=== PATIENT | male | born 1995 | race Hispanic/Latino ===

== ENCOUNTER 2018-05-14 23:44 | Emergency (ER) | payer OTHER ==
[2018-05-15] MEDS ORDERED: LIDOCAINE 2% W/EPI 1:200,000 MPF 20 ML VIAL IM ONE (00:15)
--- NOTE | 2018-05-15 00:44 | EDPHYS ---
Physician Documentation [facility] Name: Willy Feliz Jr Age: 22 yrs Sex: Male : 1995 Arrival Date: 05/14/2018 Time: 23:49 Bed 6 Private MD: Uriah Matthews ED Physician Erwin Keen HPI: 05/15 00:41 This 22 yrs old Male presents to ER via Ambulatory with complaints of Facial gs Swelling, and pain. 00:41 The patient presents with pain, swelling. The problem is located in the upper left gs first molar. Onset: The symptoms/episode began/occurred 3 day(s) ago, and became worse and became persistent. Duration: The symptoms are continuous. Modifying factors: The symptoms are alleviated by nothing, the symptoms are aggravated by chewing. Associated signs and symptoms: Pertinent negatives: dysphagia, fever. Severity of symptoms: At their worst the symptoms were moderate, in the emergency department the symptoms are unchanged. The patient has not experienced similar symptoms in the past. Historical: - Allergies: 00:07 Dilaudid; lp1 - Home Meds: 00:07 None [Active]; lp1 - PMHx: 00:07 Anxiety; Asthma; lp1 - PSHx: 00:07 Carpel Tunnel; Appendectomy; lp1 - Immunization history:: Adult Immunizations up to date. - Social history:: Smoking status: Patient/guardian denies using tobacco. - Ebola Screening: : No symptoms or risks identified at this time. ROS: 00:41 All other systems are negative. gs Exam: 00:41 Eyes: Pupils equal round and reactive to light, extra-ocular motions intact. Lids and gs lashes normal. Conjunctiva and sclera are non-icteric and not injected. Cornea within normal limits. Periorbital areas with no swelling, redness, or edema. Neck: Trachea midline, no thyromegaly or masses palpated, and no cervical lymphadenopathy. Supple, full range of motion without nuchal rigidity, or vertebral point tenderness. No Meningismus. Chest/axilla: Normal chest wall appearance and motion. Nontender with no deformity. No lesions are appreciated. Cardiovascular: Regular rate and rhythm with a normal S1 and S2. No gallops, murmurs, or rubs. Normal PMI, no JVD. No pulse deficits. Respiratory: Lungs have equal breath sounds bilaterally, clear to auscultation and percussion. No rales, rhonchi or wheezes noted. No increased work of breathing, no retractions or nasal flaring. Abdomen/GI: Soft, non-tender, with normal bowel sounds. No distension or tympany. No guarding or rebound. No evidence of tenderness throughout. Back: No spinal tenderness. No costovertebral tenderness. Full range of motion. Skin: Warm, dry with normal turgor. Normal color with no rashes, no lesions, and no evidence of cellulitis. MS/ Extremity: Pulses equal, no cyanosis. Neurovascular intact. Full, normal range of motion. Neuro: Awake and alert, GCS 15, oriented to person, place, time, and situation. Cranial nerves II-XII grossly intact. Motor strength 5/5 in all extremities. Sensory grossly intact. Cerebellar exam normal. Normal gait. 00:41 Constitutional: The patient appears alert, awake. 00:41 Head/face: Noted is swelling, that is mild, of the left cheek. 00:41 ENT: Dental exam: abscess, that is mild, specifically in the upper left first molar (#14), pain, Voice: is normal. Vital Signs: 00:06 BP 174 / 122; Pulse 100; Resp 18; Temp 99.8(O); Pulse Ox 98% on R/A; Weight 103.87 kg; lp1 Height 5 ft. 6 in. (167.64 cm); Pain 9/10; 00:58 BP 158 / 105; Pulse 88; Resp 18; Pulse Ox 99% on R/A; lp1 00:06 Body Mass Index 36.96 (103.87 kg, 167.64 cm) lp1 Procedures: 00:41 I \T\ D: Incision and drainage was performed for an abscess of the left upper left first gs molar Anesthetized with ml's 2% Lidocaine with epinephrine. 2 ml's 2% Lidocaine with epinephrine. Incised with #11 blade. Drained small amount purulent fluid. the patient tolerated the procedure well. MDM: 00:01 Patient medically screened. gs 00:41 Differential diagnosis: dental caries, gingivitis, dental abscess. Data reviewed: vital gs signs, nurses notes. 00:45 Counseling: I had a detailed discussion with the patient and/or guardian regarding: the gs presence of at least one elevated blood pressure reading (>120/80) during this emergency department visit. Special discussion: I have referred the patient to see his PCP for further evaluation of high blood pressure. Administered Medications: 00:30 Drug: Lidocaine-Epinephrine -2 % (1:100,000) 10 ml Route: Infiltration; lp1 00:57 Drug: Motrin 800 mg Route: PO; lp1 01:38 Follow up: Response: No adverse reaction lp1 00:57 Drug: Augmentin 875 mg Route: PO; lp1 01:39 Follow up: Response: No adverse reaction lp1 Disposition: 05/15/18 00:43 Discharged to Home. Impression: Periapical abscess without sinus. - Condition is Stable. - Discharge Instructions: Dental Abscess, Managing Your High Blood Pressure. - Prescriptions for Tylenol- Codeine #4 300-60 mg Oral Tablet - take 1 tablet by ORAL route every 6 hours As needed; 10 tablet. Augmentin 875- 125 mg Oral Tablet - take 1 tablet by ORAL route every 12 hours for 10 days; 20 tablet. - Medication Reconciliation Form, Thank You Letter, Antibiotic Education, Prescription Opioid Use form. - Follow up: Private Physician; When: 2 - 3 days; Reason: Recheck today's complaints, Re-evaluation by your physician. Follow up: Emerson Gilbert DDS; When: 2 - 3 days; Reason: Re-evaluation by your physician. Signatures: Sandy Gallo RN RN 1 Erwin Keen MD MD Corrections: (The following items were deleted from the chart) 01:38 00:43 05/15/2018 00:43 Discharged to Home. Impression: Periapical abscess without lp1 sinus. Condition is Stable. Forms are Medication Reconciliation Form, Thank You Letter, Antibiotic Education, Prescription Opioid Use. Follow up: Private Physician; When: 2 - 3 days; Reason: Recheck today's complaints, Re-evaluation by your physician. Follow up: Emerson Gilbert; When: 2 - 3 days; Reason: Re-evaluation by your physician. gs
--- NOTE | 2018-05-15 00:44 | ER ---
Nurse's Notes [facility] Name: Willy Feliz Jr Age: 22 yrs Sex: Male : 1995 Arrival Date: 05/14/2018 Time: 23:49 Bed 6 Private MD: Uriah Matthews Diagnosis: Periapical abscess without sinus Presentation: 05/15 00:03 Presenting complaint: Patient states: Left sided facial pain that began 2 days ago, lp1 worse today and increased swelling; Denies fever. Transition of care: patient was not received from another setting of care. Onset of symptoms was May 15, 2018. Risk Assessment: Do you want to hurt yourself or someone else? Patient reports no desire to harm self or others. Initial Sepsis Screen: Does the patient meet any 2 criteria? No. Patient's initial sepsis screen is negative. Does the patient have a suspected source of infection? No. Patient's initial sepsis screen is negative. Care prior to arrival: None. 00:03 Method Of Arrival: Ambulatory lp1 00:03 Acuity: BRUCE 4 lp1 Historical: - Allergies: 00:07 Dilaudid; lp1 - Home Meds: 00:07 None [Active]; lp1 - PMHx: 00:07 Anxiety; Asthma; lp1 - PSHx: 00:07 Carpel Tunnel; Appendectomy; lp1 - Immunization history:: Adult Immunizations up to date. - Social history:: Smoking status: Patient/guardian denies using tobacco. - Ebola Screening: : No symptoms or risks identified at this time. Screenin:09 Abuse screen: Denies threats or abuse. Denies injuries from another. Nutritional lp1 screening: No deficits noted. Tuberculosis screening: No symptoms or risk factors identified. Fall Risk None identified. Assessment: 00:09 General: Appears uncomfortable, Behavior is cooperative, anxious. Pain: Complains of lp1 pain in left cheek Pain currently is 10 out of 10 on a pain scale. Quality of pain is described as sharp. Neuro: Level of Consciousness is awake, alert, obeys commands. Cardiovascular: Patient's skin is warm and dry. Respiratory: Respiratory effort is even, unlabored. GI: No signs and/or symptoms were reported involving the gastrointestinal system. : No signs and/or symptoms were reported regarding the genitourinary system. EENT: No signs and/or symptoms were reported regarding the EENT system. Derm: Wound noted Wound is Redness, swelling to left side of face. Musculoskeletal: Circulation, motion, and sensation intact. 01:00 Reassessment: Patient appears in no apparent distress at this time. Patient and/or lp1 family updated on plan of care and expected duration. Pain level reassessed. General: Behavior is anxious. Vital Signs: 00:06 BP 174 / 122; Pulse 100; Resp 18; Temp 99.8(O); Pulse Ox 98% on R/A; Weight 103.87 kg; lp1 Height 5 ft. 6 in. (167.64 cm); Pain 9/10; 00:58 BP 158 / 105; Pulse 88; Resp 18; Pulse Ox 99% on R/A; lp1 00:06 Body Mass Index 36.96 (103.87 kg, 167.64 cm) lp1 ED Course: 05/14 23:49 Patient arrived in ED. es 23:49 Uriah Matthews MD is Private Physician. 23:57 Erwin Keen MD is Attending Physician. 05/15 00:03 Sandy Gallo, MINO is Primary Nurse. lp1 00:05 Triage completed. lp1 00:06 Arm band placed on left wrist. lp1 00:09 Patient has correct armband on for positive identification. lp1 00:30 Assisted provider for draining of abscess in left side of mouth. lp1 00:43 Emerson Gilbert DDS is Referral Physician. gs 00:59 Patient did not have IV access during this emergency room visit. lp1 Administered Medications: 00:30 Drug: Lidocaine-Epinephrine -2 % (1:100,000) 10 ml Route: Infiltration; lp1 00:57 Drug: Motrin 800 mg Route: PO; lp1 01:38 Follow up: Response: No adverse reaction lp1 00:57 Drug: Augmentin 875 mg Route: PO; lp1 01:39 Follow up: Response: No adverse reaction lp1 Outcome: 00:43 Discharge ordered by . gs 01:38 Discharged to home ambulatory. lp1 01:38 Condition: good 01:38 Discharge instructions given to patient, Instructed on discharge instructions, follow up and referral plans. medication usage, Demonstrated understanding of instructions, follow-up care, medications, Prescriptions given X 2. 01:38 Patient left the ED. lp1 Signatures: Tisha Howe Laura RN RN lp1 Erwin Keen MD MD gs Corrections: (The following items were deleted from the chart) 01:01 00:09 General: Appears uncomfortable, Behavior is cooperative, appropriate for age, lp1 lp1
[2018-05-15] MEDS ORDERED: IBUPROFEN 400 MG TAB ONE (00:52)
[2018-05-15] MEDS ORDERED: AMOX/K CLAV 875 MG TAB ONE (00:52)
[2018-05-15 01:55] VITALS: TEMP 99.8
[2018-05-15 01:56] VITALS: BP 158/105; O2SAT 99
== END 2018-05-15 01:38 | disposition home or self-care (01) ==
LOC: ER 23:44
PROC: 0C95XZZ Drainage of Upper Gingiva, External Approach (ICD-10-PCS; principal; 2018-05-15)
DX: K04.7 Periapical abscess without sinus (principal); Z88.8 Allergy status to other drugs, medicaments and biological substances
CPT/HCPCS: 99283

== ENCOUNTER 2020-07-24 21:03 | Emergency (ER) | payer BC, OTHER ==
--- OUTSIDE RECORDS SUMMARY | 2020-07-24 21:05 | XMS REPORT | Continuity of Care Document ---
:1995 Author Organization [facility] t Address [address] [place] [address] [address] [place] [address] Care Team Providers Name Role Phone Lab, [facility] Fam Pob I Attending Clinician Unavailable Doctor Unassigned, Name Attending Clinician Unavailable Problems This patient has no known problems. Allergies, Adverse Reactions, Alerts This patient has no known allergies or adverse reactions. Medications This patient has no known medications. Procedures This patient has no known procedures. Encounters Start End Encounter Admission Attending Care Care Encounter Source Date/Time Date/Time Type Type Clinicians Facility Department ID 2020-07-14 2020-07-14 Laboratory Lab, [facility] [id number] 12:50:48 13:10:48 Only Fam Pob I Health [id number] [place] [id number] [facility] [id number] nal [address] 2020-07-14 2020-07-14 Letter Doctor FOZIA [id number] 00:00:00 00:00:00 (Out) UnassignedGUANAKO [id number] [facility] [phone] [id number] Results This patient has no known results.
--- OUTSIDE RECORDS SUMMARY | 2020-07-24 21:05 | XMS REPORT | Summary of Care ---
:1995 Author Organization [facility] Address [address] [place] [address] Care Team Providers Name Role Phone Uriah Matthews Rylie Primary Care Provider Reason for Visit Reason Comments Exposure Encounter Details Date Type Department Care Team Description 07/14/[address] [facility] Family Sheryl Sands FNP [address] [place] [address] Suspected 2019 [facility], [facility] Fam Pob I Coronavirus [address] [facility] Infection ([address] Dx) [place] [address] Allergies Not on Filedocumented as of this encounter (statuses as of 07/14/2020) Medications Not on filedocumented as of this encounter (statuses as of 07/14/2020) Active Problems Not on filedocumented as of this encounter (statuses as of 07/14/2020) Social History Tobacco Use Types Packs/Day Years Used Date Never Assessed Sex Assigned at Date Recorded Not on file documented as of this encounter Last Filed Vital Signs Not on filedocumented in this encounter Nursing Notes Smiley Amaro MA - 07/14/2020 1:00 PM JERONIMOTDonald Tray Jimenez is a 25 year old male here for COVID Screening with a Nasopharyngeal Swab All droplet and contact precautions taken with appropriate PPE worn while interacting with patient. ? Goggles ? N95 Mask ? Gloves ? Gown Patient swabbed , both Nostrils. Patient educated on plan of care for visit, swabbing technique, risks and benefits of test and length of time to receive results. Verbal consent obtained to perform test. CDC Fact Sheet for Patients nCoV Diagnostic Panel dated 02/06/2020 and Factsheet What to Do if Sick with COVID 19 01/17/20 provided. Patient swabbed per appropriate nasopharyngeal technique, and patient tolerated well. Patient was discharged from the testing clinic in stable condition. Smiley Amaro MA 07/14/2020 12:58 PM documented in this encounter Plan of Treatment Name Type Priority Associated Diagnoses Order S chedule COVID-19 (PCR MOLECULAR LAB Routine Suspected 2019 No levi Ordered: 07/14/2020 TESTING) Coronavirus Infection Health Maintenance Due Date Last Done Comments VARICELLA VACCINES (1 of 2 - 1994 2-dose childhood series) Depression Screening 2005 DTaP,Tdap,and Td Vaccines (1 - 2012 Tdap) INFLUENZA VACCINE (#1) 2020 PNEUMOCOCCAL 0-64 YEARS COMBINED Aged Out No longer eligible based on SERIES patient's age to complete this topic documented as of this encounter Results Not on filedocumented in this encounter Visit Diagnoses Diagnosis Suspected 2018 Novel Coronavirus Infecti on - Primary documented in this encounter Additional Health Concerns Infection Onset Date Last Indicated Resolved Time COVID-19 Rule Out 07/14/2020 07/14/2020 documented as of this encounter Insurance Payer Benefit Plan Subscriber ID Effective Dates Phone Address Type / Group [facility] [id number] 2019-[place]den [phone] [address] P[place] - OUT OF t 7 [id number] [place] [address] documented as of this encounter
--- OUTSIDE RECORDS SUMMARY | 2020-07-24 21:05 | XMS REPORT | Summary of Care ---
:1995 Author Organization [facility] Address [address] [place] [address] Care Team Providers Name Role Phone Byron Uriah Rylie Primary Care Provider Encounter Details Date Type Department Care Team Description 07/14/2020 Letter (Out) [facility] MyChart Message s Doctor Unassigned, No [address] [facility] [place] [address] [address] [facility] [phone] [place] [address] Allergies Not on Filedocumented as of this [...] Signs Not on filedocumented in this encounter Plan of Treatment Date Type Specialty Care Team Description 07/14/2020 Laboratory Only Family Medicine Gretchen Sands FNP [address] [address] Lab, Adc Fam Pob I Health Maintenance Due Date Last Done Comments VARICELLA VACCINES (1 of 2 - 1994 2-dose childhood series) Depression Screening 2005 DTaP,Tdap,and Td Vaccines (1 - 2012 Tdap) INFLUENZA VACCINE (#1) 2020 PNEUMOCOCCAL 0-64 YEARS COMBINED Aged Out No longer eligible based on SERIES patient's age to complete this topic documented as of this encounter Results Not on filedocumented in this encounter Insurance Payer Benefit Plan Subscriber ID Effective Dates Phone Address Type / Group [employer] [place] [id number] 2019-[place] [phone] [address] P[place] - OUT OF t 7 [id number] [place] [address] documented as of this encounter
[2020-07-24] MEDS ORDERED: KETOROLAC 30 MG/ML INJ ONE (22:04)
--- NOTE | 2020-07-24 22:28 | EDPHYS ---
Physician Documentation [facility] Name: Willy Feliz Jr Age: 25 yrs Sex: Male : 1995 Arrival Date: 07/24/2020 Time: 21:06 Bed 16 Private MD: Uriah Matthews ED Physician Jacob Waterman HPI: 07/24 21:56 This 25 yrs old Male presents to ER via Ambulatory with complaints of pm1 Headache, fatigue, Chest Tightness. 21:56 The patient complains of pain to the right eye and left eye. The patient describes the pm1 headache as aching. 21:56 Onset: The symptoms/episode began/occurred 3 day(s) ago. Associated signs and symptoms: pm1 Pertinent positives: sore throat, chills, body aches, headache. Patient with a co worker that tested positive for covid and he is concerned that his symptoms are covid related. Patient reports that it initially felt like an asthma exacerbation but then he started getting a sore throat, body ache, occasional shortness of breath with exertion. Historical: - Allergies: 21:21 Dilaudid; ss - PMHx: 21:21 Anxiety; Asthma; ss - PSHx: 21:21 Carpel Tunnel; Appendectomy; ss - Immunization history:: Adult Immunizations up to date. - Social history:: Smoking status: Patient denies any tobacco usage or history of. ROS: 21:56 Neck: Negative for injury, pain, and swelling, Cardiovascular: Negative for chest pain, pm1 palpitations, and edema. 21:56 Abdomen/GI: Negative for abdominal pain, nausea, vomiting, diarrhea, and constipation, Back: Negative for injury and pain, MS/Extremity: Negative for injury and deformity, Skin: Negative for injury, rash, and discoloration. 21:56 Constitutional: Positive for body aches, chills, poor PO intake. 21:56 ENT: Positive for sore throat, Negative for ear pain. 21:56 Respiratory: Positive for shortness of breath, Negative for cough. 21:56 Neuro: Positive for headache. Exam: 21:56 Constitutional: This is a well developed, well nourished patient who is awake, alert, pm1 and in no acute distress. 21:56 Head/Face: Normocephalic, atraumatic. ENT: Nares patent. No nasal discharge, no septal abnormalities noted. Tympanic membranes are normal and external auditory canals are clear. Oropharynx with no redness, swelling, or masses, exudates, or evidence of obstruction, uvula midline. Mucous membranes moist. 21:56 Skin: Warm, dry with normal turgor. Normal color with no rashes, no lesions, and no evidence of cellulitis. MS/ Extremity: Pulses equal, no cyanosis. Neurovascular intact. Full, normal range of motion. 21:56 Head/face: Sinus tenderness, is not appreciated. 21:56 Cardiovascular: Exam negative for acute changes, Rate: normal, Rhythm: regular, Pulses: no pulse deficits are appreciated. 21:56 Respiratory: Exam negative for acute changes, respiratory distress, shortness of breath. 21:56 Abdomen/GI: Inspection: abdomen appears normal, Palpation: abdomen is soft and non-tender, in all quadrants. 21:56 Neuro: Exam negative for acute changes, Orientation: is normal, Mentation: is normal, Motor: is normal, moves all fours, Sensation: is normal, no obvious gross deficits. Vital Signs: 21:17 BP 141 / 98; Pulse 111; Resp 16; Temp 100.9(TE); Pulse Ox 98% on R/A; Weight 108.86 kg; ss Height 5 ft. 6 in. (167.64 cm); Pain 8/10; 22:38 Temp 99.2; ea 22:42 BP 138 / 93; Pulse 95; Resp 18; Pulse Ox 98% on R/A; ea 21:17 Body Mass Index 38.74 (108.86 kg, 167.64 cm) ss MDM: 21:18 Patient medically screened. pm1 22:27 Data reviewed: vital signs. Data interpreted: Pulse oximetry: on room air is 98 %. pm1 Interpretation: normal. Counseling: I had a detailed discussion with the patient and/or guardian regarding: the historical points, exam findings, and any diagnostic results supporting the discharge/admit diagnosis, lab results, radiology results, the need for outpatient follow up, to return to the emergency department if symptoms worsen or persist or if there are any questions or concerns that arise at home. 07/24 21:20 Order name: COVID-19 pm1 07/24 21:20 Order name: Flu; Complete Time: 22:26 pm1 07/24 21:20 Order name: CXR XRAY pm1 07/24 21:20 Order name: Strep; Complete Time: 22:26 pm1 07/24 22:18 Order name: Throat Culture [facility] 07/24 21:20 Order name: Labs collected and sent; Complete Time: 21:45 pm1 Administered Medications: 22:03 Drug: TORadol 60 mg Route: IM; Site: left gluteus; ea 22:38 Follow up: Temp 99.2; Response: No adverse reaction ea 22:38 Drug: predniSONE 60 mg Route: PO; ea 22:39 Follow up: Response: Medication administered at discharge. ea Disposition: 23:25 Co-signature as Attending Physician, Jacob Waterman MD. [email or web address] Disposition: 07/24/20 22:27 Discharged to Home. Impression: Acute upper respiratory infection, unspecified. - Condition is Stable. - Discharge Instructions: Upper Respiratory Infection, Adult, COVID-19. - Prescriptions for Prednisone 20 mg Oral Tablet - take 2 tablets by ORAL route once daily for 7 days; 14 tablet. Albuterol Sulfate 90 mcg/actuation - inhale 1-2 puff by INHALATION route every 4-6 hours; 1 Inhaler. - Medication Reconciliation Form, Thank You Letter, Antibiotic Education, Prescription Opioid Use, Work release form form. - Follow up: Emergency Department; When: As needed; Reason: Worsening of condition. Follow up: Private Physician; When: 2 - 3 days; Reason: Recheck today's complaints, Continuance of care, Re-evaluation by your physician. - Problem is new. - Symptoms have improved. Signatures: Dispatcher [employer] [facility] Jacob Waterman MD MD pkl Smirch, Shelby, RN RN ss Marinas, Patrick, DRUM PLATER DRUM PLATER pm1 Maribell Diaz RN RN ea Corrections: (The following items were deleted from the chart) 22:51 22:27 07/24/2020 22:27 Discharged to Home. Impression: Acute upper respiratory ea infection, unspecified. Condition is Stable. Forms are Medication Reconciliation Form, Thank You Letter, Antibiotic Education, Prescription Opioid Use. Follow up: Emergency Department; When: As needed; Reason: Worsening of condition. Follow up: Private Physician; When: 2 - 3 days; Reason: Recheck today's complaints, Continuance of care, Re-evaluation by your physician. Problem is new. Symptoms have improved. pm1
--- NOTE | 2020-07-24 22:28 | ER ---
Nurse's Notes [facility] Name: Willy Feliz Jr Age: 25 yrs Sex: Male : 1995 Arrival Date: 07/24/2020 Time: 21:06 Bed 16 Private MD: Uriah Matthews Diagnosis: Acute upper respiratory infection, unspecified Presentation: 07/24 21:17 Chief complaint: Patient states: sore throat, headache, decreased appetite, SOB on ss exertion at times and feeling hot off and on for 2-3 days. Coronavirus screen: Client denies travel out of the [place] in the last 14 days. Ebola Screen: Patient denies exposure to infectious person. Patient denies travel to an Ebola-affected area in the 21 days before illness onset. Initial Sepsis Screen: Does the patient meet any 2 criteria? No. Patient's initial sepsis screen is negative. Does the patient have a suspected source of infection? No. Patient's initial sepsis screen is negative. Risk Assessment: Do you want to hurt yourself or someone else? Patient reports no desire to harm self or others. Onset of symptoms was July 21, 2020. 21:17 Method Of Arrival: Ambulatory ss 21:17 Acuity: BRUCE 3 ss Triage Assessment: 21:50 Headache History: Denies prior headaches. General: Appears in no apparent distress. ll2 Behavior is appropriate for age. Pain: Denies pain. Historical: - Allergies: 21:21 Dilaudid; ss - PMHx: 21:21 Anxiety; Asthma; ss - PSHx: 21:21 Carpel Tunnel; Appendectomy; ss - Immunization history:: Adult Immunizations up to date. - Social history:: Smoking status: Patient denies any tobacco usage or history of. Screenin:49 Abuse screen: Denies threats or abuse. Nutritional screening: No deficits noted. ll2 Tuberculosis screening: No symptoms or risk factors identified. Fall Risk None identified. Assessment: 21:30 General: Appears uncomfortable, Behavior is appropriate for age. Pain: Denies pain. ll2 Neuro: Level of Consciousness is awake, alert, obeys commands, Oriented to person, place, time, situation. Cardiovascular: Patient's skin is warm and dry. Respiratory: Airway is patent Respiratory effort is even, unlabored, Respiratory pattern is regular, symmetrical. Derm: Skin is pink, warm \T\ dry. 22:50 Reassessment: Patient and/or family updated on plan of care and expected duration. Pain ea level reassessed. Patient is alert, oriented x 3, equal unlabored respirations, skin warm/dry/pink. Discharge instruction given to patient, verbalized the understanding of instruction. Pt left ED ambulatory tolerating well. Vital Signs: 21:17 BP 141 / 98; Pulse 111; Resp 16; Temp 100.9(TE); Pulse Ox 98% on R/A; Weight 108.86 kg; ss Height 5 ft. 6 in. (167.64 cm); Pain 8/10; 22:38 Temp 99.2; ea 22:42 BP 138 / 93; Pulse 95; Resp 18; Pulse Ox 98% on R/A; ea 21:17 Body Mass Index 38.74 (108.86 kg, 167.64 cm) ED Course: 21:06 Patient arrived in ED. am2 21:07 Uriah Matthews MD is Private Physician. am2 21:16 Jourdan Noe NP is PHCP. pm1 21:16 Jacob Waterman MD is Attending Physician. pm1 21:21 Triage completed. ss 21:21 Arm band placed on right wrist. ss 21:26 Maribell Diaz, MINO is Primary Nurse. ea 21:30 Patient has correct armband on for positive identification. Bed in low position. Call ll2 light in reach. Side rails up X 1. Pulse ox on. NIBP on. 21:53 CXR XRAY In Process Unspecified. EDMS 22:43 No provider procedures requiring assistance completed. Patient did not have IV access ea during this emergency room visit. Administered Medications: 22:03 Drug: TORadol 60 mg Route: IM; Site: left gluteus; ea 22:38 Follow up: Temp 99.2; Response: No adverse reaction ea 22:38 Drug: predniSONE 60 mg Route: PO; ea 22:39 Follow up: Response: Medication administered at discharge. ea Outcome: 22:27 Discharge ordered by . pm1 22:50 Discharged to home ambulatory. ea 22:50 Condition: stable 22:50 Discharge instructions given to patient, Instructed on discharge instructions, follow up and referral plans. medication usage, Demonstrated understanding of instructions, follow-up care, medications, Prescriptions given X 2. 22:51 Patient left the ED. dexter Addendum: 07/28/2020 08:38 Addendum: COVID-19 Result: Positive result giiven to ED physician to notify pt. tad larios Physician: Paty DAVID-C Physician was able to contact pt and pt was notified of positive COVID-19 swab result. Physician answered pt questions. Signatures: Dispatcher [employer] EDIN Mary Avalos, MINO RN Jourdan Guadalupe NP BONER MEAT pm1 Astrid Madrigal am2 Maribell Diaz RN RN Julia Cortes Lacie RN RN ll2
[2020-07-24] MEDS ORDERED: predniSONE 20 MG TAB ONE (22:46)
--- NOTE | 2020-07-25 17:02 | RAD REPORT ---
EXAM DESCRIPTION: RAD - Chest Single View - 07/24/2020 9:53 pm CLINICAL HISTORY: FEVER COMPARISON: February 2017 TECHNIQUE: AP portable chest image was obtained 07/24/2020 9:53 pm . FINDINGS: Lung volumes are low. Airspace opacification is present in the volume reduced right upper lobe. The right lung base and left lung field are clear. No failure or volume overload. Trachea is mi dline. Heart and vasculature are normal. No measurable pleural effusion and no pneumothorax. No acute bony abnormality seen. No acute aortic findings suspected. IMPRESSION: Right upper lobe pneumonia
[2020-07-27 16:07] VITALS: O2SAT 98
[2020-07-27 16:08] VITALS: TEMP 99.2
[2020-07-27 16:09] VITALS: BP 138/93
== END 2020-07-24 22:51 | disposition home or self-care (01) ==
LOC: ER 21:03
DX: U07.1 COVID-19 (principal); J06.9 Acute upper respiratory infection, unspecified; Z88.8 Allergy status to other drugs, medicaments and biological substances
CPT/HCPCS: 87070; 87081; 87804 ×2; 71045; 96372; 99284; U0002; J7512

== ENCOUNTER 2020-07-28 08:16 | Emergency (ER) | payer BC, OTHER ==
--- OUTSIDE RECORDS SUMMARY | 2020-07-28 08:27 | XMS REPORT | Continuity of Care Document ---
:1995 Author Organization [facility] t Address [address] [place] [address] Dr. Sandhu[address] [place] [address] Care Team Providers Name Role Phone Lab, [facility] Fam Pob I Attending Clinician Unavailable Doctor [...] Facility Department ID 2020-07-14 2020-07-14 Laboratory Lab, [facility] [id number] 12:50:48 13:10:48 Only Fam Pob I Health [id number] [place] [id number] Professio [phone] nal [address] 2020-07-14 2020-07-14 Letter Doctor MARCELO [id number] 00:00:00 00:00:00 (Out) UnassignedGUANAKO [id number] [place] [facility] [id number] [phone] [id number] Results This patient has no known results.
--- NOTE | 2020-07-28 09:11 | EDPHYS ---
Physician Documentation [facility] Name: Willy Feliz Jr Age: 25 yrs Sex: Male : 1995 Arrival Date: 07/28/2020 Time: 08:20 Bed 13 Private MD: ED Physician Eladio Camacho HPI: 07/28 09:05 This 25 yrs old Male presents to ER via Ambulatory with complaints of Cold kb Symptoms. 09:05 The patient or guardian reports cough, that is intermittent, described as moderate, kb with no sputum, difficulty breathing, flu symptoms, low-grade fever, myalgias. Onset: The symptoms/episode began/occurred 7 day(s) ago. Severity of symptoms: At their worst the symptoms were moderate, in the emergency department the symptoms are unchanged. Modifying factors: The symptoms are alleviated by nothing, the symptoms are aggravated by nothing. Associated signs and symptoms: Pertinent positives: fever, Pertinent negatives: chest pain, diarrhea, ear ache, nausea, rhinorrhea, sore throat, vomiting. The patient has not experienced similar symptoms in the past. The patient has not recently seen a physician. Pt reports he was seen on 07/24/20 for same symptoms. States the symptoms are not getting worse, but they aren't going away. Was given an albuterol inhaler during last visit and that helps the shortness of breath. Historical: - Allergies: 08:34 Dilaudid; ss - PMHx: 08:34 Anxiety; Asthma; ss - PSHx: 08:34 Carpel Tunnel; Appendectomy; ss - Immunization history:: Adult Immunizations up to date. - Social history:: Smoking status: Patient denies any tobacco usage or history of. ROS: 09:08 ENT: Negative for injury, pain, and discharge, Neck: Negative for injury, pain, and kb swelling, Cardiovascular: Negative for chest pain, palpitations, and edema, Abdomen/GI: Negative for abdominal pain, nausea, vomiting, diarrhea, and constipation, Back: Negative for injury and pain, MS/Extremity: Negative for injury and deformity, Skin: Negative for injury, rash, and discoloration, Neuro: Negative for headache, weakness, numbness, tingling, and seizure. 09:08 Constitutional: Positive for body aches, chills, fatigue, fever, malaise. 09:08 Respiratory: Positive for cough, dyspnea on exertion, shortness of breath. Exam: 09:08 Constitutional: This is a well developed, well nourished patient who is awake, alert, kb and in no acute distress. Head/Face: Normocephalic, atraumatic. ENT: Nares patent. No nasal discharge, no septal abnormalities noted. Tympanic membranes are normal and external auditory canals are clear. Oropharynx with no redness, swelling, or masses, exudates, or evidence of obstruction, uvula midline. Mucous membranes moist. Neck: Trachea midline, no thyromegaly or masses palpated, and no cervical lymphadenopathy. Supple, full range of motion without nuchal rigidity, or vertebral point tenderness. No Meningismus. Chest/axilla: Normal chest wall appearance and motion. Nontender with no deformity. No lesions are appreciated. Cardiovascular: Regular rate and rhythm with a normal S1 and S2. No gallops, murmurs, or rubs. Normal PMI, no JVD. No pulse deficits. Respiratory: Lungs have equal breath sounds bilaterally, clear to auscultation and percussion. No rales, rhonchi or wheezes noted. No increased work of breathing, no retractions or nasal flaring. Abdomen/GI: Soft, non-tender, with normal bowel sounds. No distension or tympany. No guarding or rebound. No evidence of tenderness throughout. Skin: Warm, dry with normal turgor. Normal color with no rashes, no lesions, and no evidence of cellulitis. MS/ Extremity: Pulses equal, no cyanosis. Neurovascular intact. Full, normal range of motion. Neuro: Awake and alert, GCS 15, oriented to person, place, time, and situation. Cranial nerves II-XII grossly intact. Motor strength 5/5 in all extremities. Sensory grossly intact. Cerebellar exam normal. Normal gait. Vital Signs: 08:29 BP 123 / 83; Pulse 94; Resp 17; Temp 97.0(TE); Pulse Ox 97% on R/A; Weight 108.86 kg; ss Height 5 ft. 6 in. (167.64 cm); Pain 9/10; 09:48 BP 120 / 84; Pulse 93; Resp 16; Temp 97.5; Pulse Ox 96% ; bp 08:29 Body Mass Index 38.74 (108.86 kg, 167.64 cm) ss MDM: 08:25 Patient medically screened. kb 09:09 Data reviewed: vital signs, nurses notes. Data interpreted: Pulse oximetry: on room air kb is 97 %. Interpretation: normal. Counseling: I had a detailed discussion with the patient and/or guardian regarding: the historical points, exam findings, and any diagnostic results supporting the discharge/admit diagnosis, lab results, radiology results, the need for outpatient follow up, a family practitioner, to return to the emergency department if symptoms worsen or persist or if there are any questions or concerns that arise at home. 07/28 08:30 Order name: Chest Single View XRAY; Complete Time: 09:13 kb Administered Medications: 09:20 Drug: Zithromax 500 mg Route: PO; bp 09:49 Follow up: Response: No adverse reaction bp Disposition: 07/28/20 09:10 Discharged to Home. Impression: Coronavirus infection, unspecified - COVID-19. - Condition is Stable. - Discharge Instructions: COVID-19. - Prescriptions for Zithromax 500 mg Oral Tablet - take 1 tablet by ORAL route once daily for 5 days; 5 tablet. - Medication Reconciliation Form, Thank You Letter, Antibiotic Education, Prescription Opioid Use form. - Follow up: Emergency Department; When: As needed; Reason: Worsening of condition. Follow up: Private Physician; When: 2 - 3 days; Reason: Recheck today's complaints, Continuance of care, Re-evaluation by your physician. Addendum: 07/29/2020 11:04 Co-signature as Attending Physician, Eladio Camacho MD I agree with the assessment and c cisse plan of care. Signatures: Dispatcher [employer] [facility] Paty Newton, JOANN-C FARM BOSS-Eladio Nascimento MD MD cha Smirch, Shelby, MINO RN Uriah Razo, MINO RN bp Corrections: (The following items were deleted from the chart) 07/28 09:50 09:10 07/28/2020 09:10 Discharged to Home. Impression: Coronavirus infection, bp unspecified - COVID-19. Condition is Stable. Forms are Medication Reconciliation Form, Thank You Letter, Antibiotic Education, Prescription Opioid Use. Follow up: Emergency Department; When: As needed; Reason: Worsening of condition. Follow up: Private Physician; When: 2 - 3 days; Reason: Recheck today's complaints, Continuance of care, Re-evaluation by your physician. kb
--- NOTE | 2020-07-28 09:11 | ER ---
Nurse's Notes [facility] Name: Willy Feliz Jr Age: 25 yrs Sex: Male : 1995 Arrival Date: 07/28/2020 Time: 08:20 Bed 13 Private MD: Diagnosis: Coronavirus infection, [id number] Presentation: 07/28 08:29 Chief complaint: Patient states: "I was here Friday for chills, fever, SOB and headache ss and it's just not getting any better.". Coronavirus screen: Client denies travel out of the [place] in the last 14 days. Client reports previous positive COVID test result. Ebola Screen: Patient denies exposure to infectious person. Patient denies travel to an Ebola-affected area in the 21 days before illness onset. Initial Sepsis Screen: Does the patient meet any 2 criteria? No. Patient's initial sepsis screen is negative. Does the patient have a suspected source of infection? No. Patient's initial sepsis screen is negative. Risk Assessment: Do you want to hurt yourself or someone else? Patient reports no desire to harm self or others. Onset of symptoms was July 24, 2020. 08:29 Method Of Arrival: Ambulatory ss 08:29 Acuity: BRUCE 4 ss Triage Assessment: 08:30 General: Appears in no apparent distress. uncomfortable, ill, Behavior is cooperative, bp appropriate for age, anxious. Pain: Complains of pain in head. EENT: Reports nasal congestion. Neuro: Reports headache. Cardiovascular: No deficits noted. Respiratory: Reports shortness of breath. GI: No signs and/or symptoms were reported involving the gastrointestinal system. : No signs and/or symptoms were reported regarding the genitourinary system. Derm: No deficits noted. Musculoskeletal: No deficits noted. Historical: - Allergies: 08:34 Dilaudid; ss - PMHx: 08:34 Anxiety; Asthma; ss - PSHx: 08:34 Carpel Tunnel; Appendectomy; ss - Immunization history:: Adult Immunizations up to date. - Social history:: Smoking status: Patient denies any tobacco usage or history of. Screenin:30 Abuse screen: Denies threats or abuse. Denies injuries from another. Nutritional bp screening: No deficits noted. Tuberculosis screening: No symptoms or risk factors identified. Fall Risk None identified. Assessment: 08:29 Reassessment: COVID results in, +, tested on Friday. ss 09:48 Reassessment: PT D/C HOME AMBULATORY, DX WITH COVID +. bp Vital Signs: 08:29 BP 123 / 83; Pulse 94; Resp 17; Temp 97.0(TE); Pulse Ox 97% on R/A; Weight 108.86 kg; ss Height 5 ft. 6 in. (167.64 cm); Pain 9/10; 09:48 BP 120 / 84; Pulse 93; Resp 16; Temp 97.5; Pulse Ox 96% ; bp 08:29 Body Mass Index 38.74 (108.86 kg, 167.64 cm) ED Course: 08:20 Patient arrived in ED. as 08:22 Uriah Tidwell, RN is Primary Nurse. bp 08:25 Paty Newton FNP-C is PHCP. kb 08:25 Eladio Camacho MD is Attending Physician. kb 08:30 Patient has correct armband on for positive identification. Bed in low position. Call bp light in reach. Side rails up X2. 08:33 Triage completed. ss 08:34 Arm band placed on left wrist. ss 08:48 Chest Single View XRAY In Process Unspecified. EDMS 09:48 No provider procedures requiring assistance completed. Patient did not have IV access bp during this emergency room visit. Administered Medications: 09:20 Drug: Zithromax 500 mg Route: PO; bp 09:49 Follow up: Response: No adverse reaction bp Outcome: 09:10 Discharge ordered by . kb 09:48 Discharged to home ambulatory. bp 09:48 Condition: stable 09:48 Discharge instructions given to patient, Instructed on discharge instructions, follow up and referral plans. medication usage, Demonstrated understanding of instructions, follow-up care, medications, Prescriptions given X 1. 09:50 Patient left the ED. bp Signatures: Dispatcher [employer] EDMS Paty Newton FNP-C FNP-Ckb Martinez, Amelia as Smirch, Shelby, RN RN Uriah Tidwell, RN RN bp
--- NOTE | 2020-07-28 09:11 | RAD REPORT ---
EXAM DESCRIPTION: RAD - Chest Single View - 07/28/2020 8:48 am CLINICAL HISTORY: Dyspnea;Cough Chest pain. COMPARISON: Chest Single View dated 07/24/2020; Chest Single View dated 03/08/2017 FINDINGS: Portable technique limits examination quality. Interstitial opacities are present in the right lung and left lung base suspicious for a viral bronch itis. The heart is normal in size. No displaced fractures.
[2020-07-28] MEDS ORDERED: AZITHROMYCIN 250 MG TAB ONE (09:22)
[2020-07-29 17:40] VITALS: BP 120/84; TEMP 97.5; O2SAT 96
== END 2020-07-28 09:50 | disposition home or self-care (01) ==
LOC: ER 08:16
DX: U07.1 COVID-19 (principal); Z88.8 Allergy status to other drugs, medicaments and biological substances
CPT/HCPCS: 71045; 99283

== ENCOUNTER 2022-08-25 18:33 | Emergency (ER) | payer BC ==
--- OUTSIDE RECORDS SUMMARY | 2022-08-25 18:36 | XMS REPORT | Continuity of Care Document ---
:1995 Author Organization [facility] t Address [address] [place] [address] Care Team Providers Name Role Phone Bhanu HOOD, Amina Hart Primary Care Physician [phone] Amina Drummond MD Attending Clinician [phone] Lab, [facility] Fam Pob I Attending Clinician Unavailable Gretchen Porter Attending Clinician Doctor Unassigned, [place] Attending Clinician Unavailable GRETCHEN GONZALES Attending Clinician Unavailable Payers Payer Name Policy Type Policy Number Effective Date Expiration Date S ource Problems Condition Condition Condition Status Onset Resolution Last Treating Co mments Source Name Details Category Date Date Treatment Clinician Date No known No known Disease Kelse y active active ybmikel problems problems Allergies, Adverse Reactions, Alerts Allergy Allergy Status Severity Reaction(s) Onset Inactive Treating Comm ents Source Name Type Date Date Clinician NO KNOWN Drug Active [facility] Social History Social Habit Start Date Stop Date Quantity Comments Source Exposure to Not sure Re zavaleta SARS-CoV-2 (event) Tobacco use and 2021-11-13 2021-11-13 Smokeless tobacco Wyatt Munoz exposure 00:00:00 00:00:00 non-user Sex Ass[birth year] At [birth year] Re guerra 00:00:00 00:00:00 Smoking Status Start Date Stop Date Source Unknown if [facility] Never smoked tobacco Re morin Medications Ordered Filled Start Stop Current Ordering Indication Dosage Frequency Signature Comments Components Source Medication Medication Date Date Medication? Clinician (SIG) Name Name No known 2020-11 No No known Kelse y medications 2- medication Se ybold 17:07: s 52 Immunizations Ordered Immunization Filled Immunization Date Status Commen ts Source Name Name Tdap- (Boostrix, 2018-02-09 Completed Re dash Adacel) 00:00:00 Vital Signs Vital Name Observation Time Observation Value Comments Source Heart rate 2021-11-13 22:13:00 87 /min Re espinobosamir Body temperature 2021-11-13 22:13:00 36.56 Amarilis Gladys ey Seybmikel Respiratory rate 2021-11-13 22:13:00 14 /min Gladys ey Seybmikel Body height 2021-11-13 22:13:00 167.6 cm Re espinobosamir Body weight 2021-11-13 22:13:00 109.77 kg Re espinobosamir BMI 2021-11-13 22:13:00 39.06 kg/m2 Re espinobosamir Systolic blood pressure 2021-11-13 22:13:00 138 mm[Hg] Re ybmikel Diastolic blood 2021-11-13 22:13:00 86 mm[Hg] Kelse y Seybold pressure Procedures Procedure Date / Time Performed Performing Clinician [facility] e PATIENT QUESTIONNAIRE 2020-08-08 05:01:00 Doctor Unassigned, No [facility] Encounters Start End Encounter Admission Attending Care Care Encounter Source Date/Time Date/Time Type Type Clinicians Facility Department ID 2021-11-13 2021-11-13 Office Yohannes Drummond [id number] Re 16:30:00 17:00:00 Visit Amina Newton [id number] Se charlie Somogyi [id number] 2020-08-22 2020-08-22 Laboratory Lab, [facility] [id number] 08:20:42 08:40:42 Only Fam Pob I Health [id number] [place] [id number] Professio [phone] nal 0[address] One 2020-08-22 2020-08-22 Laboratory Lab, [facility] Fam Pob I [facility] 1.2. [id number] Univers 08:20:42 08:40:42 Only Anene, Gretchen Health [id number] ity of [place] [id number] [place] as Professio [phone] [address] Office [address] One 2020-08-22 2020-08-22 Outpatient R [facility] [id number] Univers 08:20:00 08:20:00 ity of [facility] 2020-08-22 2020-08-22 Outpatient R [facility] [id number] Univers 08:15:00 08:15:00 [id number] ity [facility] 2020-08-08 2020-08-08 Orders Doctor MARCELO [id number] [id number] 00:00:00 00:00:00 Only Unassigned, GUANAKO [id number] [place] [facility] [id number] [facility] 2020-08-08 2020-08-08 Orders Doctor MARCELO 1.2.840.114 [id number] Univers 00:00:00 00:00:00 Only Unassigned, GUANAKO [id number] ity of [place] [facility] [id number] [place] as [phone] [address] 2020-08-07 2020-08-07 Laboratory Lab, [facility] 1.2.840.114 [id number] 12:53:28 13:13:28 Only Fam Pob I Health [id number] [place] [id number] Professio [phone] [place] [address] Office [address] [facility] 2020-08-07 2020-08-07 Laboratory Lab, [facility] Fam Pob I [facility] 1.2. 840.114 [id number] Univers 12:53:28 13:13:28 Only Anene, Gretchen Health [id number] ity of [place] [id number] [place] as Professio [phone] [address] Office [address] One 2020-08-07 2020-08-07 Outpatient R [facility] [id number] Univers 13:00:00 13:00:00 [id number] ity [facility] 2020-08-07 2020-08-07 Outpatient R [facility] [id number] Univers 13:00:00 13:00:00 ity [facility] 2020-07-14 2020-07-14 Laboratory Lab, [facility] 1.2.840.114 [id number] 12:50:48 13:10:48 Only Fam Pob I Health [id number] [place] [id number] Professio [phone] nal [facility] Office Building [facility] 2020-07-14 2020-07-14 Laboratory Lab, [facility] Fam Pob I [facility] 1.2. 840.114 [id number] [facility] 12:50:48 13:10:48 Only Gretchen [facility] [id number] ity of [place] [id number] [place] as Professio [phone] [place] [facility] [address] [facility] 2020-07-14 2020-07-14 [facility] [id number] Univers 13:00:00 13:00:00 GRETCHEN ity [facility] 2020-07-14 2020-07-14 Letter Doctor FOZIA 1.2.840.114 [id number] 00:00:00 00:00:00 (Out) Unassigned, GUANAKO [id number] [place] [facility] [phone] [facility] 2020-07-14 2020-07-14 Letter Doctor FOZIA [id number] Univers 00:00:00 00:00:00 (Out) Unassigned, GUANAKO [id number] ity of [place] [facility] [id number] [place] as [phone] [address] Results This patient has no known results.
[2022-08-25 19:23] LABS: Absolute Lymphocytes (CBC) 2.1 K/uL (0.7-4.9); Hematocrit 46.6 % (39.6-49.0); Lymphocytes % 23.3 % (15.3-44.8); MCV 84.8 fL (80-100); MPV 7.8 fL (7.6-11.3); RBC Red Blood Cell Count 5.49 M/uL (4.33-5.43)
[2022-08-25 19:46] LABS: Potassium 3.8 mmol/L (3.5-5.1); Troponin High Sensitivity 4.3 pg/mL (<58.9)
[2022-08-25] MEDS ORDERED: DIAZEPAM 5 MG TABLET ONE (20:20)
--- NOTE | 2022-08-25 20:28 | RAD REPORT ---
EXAM DESCRIPTION: RAD - Chest Single View - 08/25/2022 8:20 pm CLINICAL HISTORY: CHEST PAIN Chest pain. COMPARISON: Chest Single View dated 07/28/2020; Chest Single View dated 07/24/2020; Chest Single View d ated 03/08/2017 FINDINGS: Portable technique limits examination quality. The lungs are grossly clear. The heart is normal in size. No displaced fractures. IMPRESSION: No acute intrathoracic process suspected.
[2022-08-25 20:57] LABS: SARS-CoV-2 Antigen Rapid Res Negative (Negative)
--- NOTE | 2022-08-25 21:09 | RAD REPORT ---
EXAM DESCRIPTION: CT - Chest For Pe Angio - 08/25/2022 8:45 pm CLINICAL HISTORY: Chest pain. Chest pain, htn, tachycardia, low grade temp COMPARISON: Chest Single View dated 07/24/2020 TECHNIQUE: CT angiogram of the pulmonary arteries was performed with MIP. All CT scans are performed using dose optimization technique as appropriate and may include automated exposure control or mA/KV adjustment according to patient size. FINDINGS: No evidence of pulmonary thromboembolism. No acute aortic finding demonstrated. The lungs are clear. No significant pericardial or pleural fluid. No concerning bony finding. Fatty liver. IMPRESSION: No evidence of pulmonary thromboembolism. No acute lung findings.
--- NOTE | 2022-08-25 23:56 | EDPHYS ---
Physician Documentation [facility] Name: Willy Feliz Jr Age: 27 yrs Sex: Male : 1995 Arrival Date: 08/25/2022 Time: 18:34 Bed 18 Private MD: ED Physician Luis Valdez HPI: 08/26 02:25 This 27 yrs old Male presents to ER via Ambulatory with complaints of snw Dizziness, Chest Pain, Foot Pain, Headache. 02:25 Onset: The symptoms/episode began/occurred suddenly, today. Associated signs and snw symptoms: Pertinent positives: chest pain, mild SOB, dizziness, and headache. Modifying factors: The patient symptoms are alleviated by nothing, the patient symptoms are aggravated by nothing. It is unknown whether or not the patient has had similar symptoms in the past. It is unknown whether or not the patient has recently seen a physician. Historical: - Allergies: 08/25 18:56 Dilaudid (Rash); vg1 - PMHx: 18:56 Anxiety; Asthma; vg1 - PSHx: 18:56 Appendectomy; vg1 - Immunization history:: Client reports receiving the 2nd dose of the Covid vaccine. - Social history:: Smoking status: Patient denies any tobacco usage or history of. ROS: 08/26 02:24 Constitutional: Negative for fever, chills, and weight loss, Eyes: Negative for injury, snw pain, redness, and discharge, ENT: Negative for injury, pain, and discharge, Neck: Negative for injury, pain, and swelling, Respiratory: Negative for shortness of breath, cough, wheezing, and pleuritic chest pain, Abdomen/GI: Negative for abdominal pain, nausea, vomiting, diarrhea, and constipation, Back: Negative for injury and pain, : Negative for injury, bleeding, discharge, and swelling, MS/Extremity: Negative for injury and deformity, Skin: Negative for injury, rash, and discoloration, Neuro: Negative for headache, weakness, numbness, tingling, and seizure. Cardiovascular: Positive for chest pain, of the chest. Exam: 02:24 Constitutional: This is a well developed, well nourished patient who is awake, alert, snw and in no acute distress. Head/Face: Normocephalic, atraumatic. Eyes: Pupils equal round and reactive to light, extra-ocular motions intact. Lids and lashes normal. Conjunctiva and sclera are non-icteric and not injected. Cornea within normal limits. Periorbital areas with no swelling, redness, or edema. ENT: Nares patent. No nasal discharge, no septal abnormalities noted. Tympanic membranes are normal and external auditory canals are clear. Oropharynx with no redness, swelling, or masses, exudates, or evidence of obstruction, uvula midline. Mucous membranes moist. Neck: Trachea midline, no thyromegaly or masses palpated, and no cervical lymphadenopathy. Supple, full range of motion without nuchal rigidity, or vertebral point tenderness. No Meningismus. Chest/axilla: Normal chest wall appearance and motion. Nontender with no deformity. No lesions are appreciated. Respiratory: Lungs have equal breath sounds bilaterally, clear to auscultation and percussion. No rales, rhonchi or wheezes noted. No increased work of breathing, no retractions or nasal flaring. Abdomen/GI: Soft, non-tender, with normal bowel sounds. No distension or tympany. No guarding or rebound. No evidence of tenderness throughout. Back: No spinal tenderness. No costovertebral tenderness. Full range of motion. Skin: Warm, dry with normal turgor. Normal color with no rashes, no lesions, and no evidence of cellulitis. MS/ Extremity: Pulses equal, no cyanosis. Neurovascular intact. Full, normal range of motion. Neuro: Awake and alert, GCS 15, oriented to person, place, time, and situation. Cranial nerves II-XII grossly intact. Motor strength 5/5 in all extremities. Sensory grossly intact. Cerebellar exam normal. Normal gait. Psych: Awake, alert, with orientation to person, place and time. Behavior, mood, and affect are within normal limits. 02:24 Cardiovascular: Rate: normal, Rhythm: regular, Pulses: no pulse deficits are appreciated, Heart sounds: normal, JVD: is not appreciated, pt with hypertension and tachycardia on assessment. Vital Signs: 08/25 18:55 BP 149 / 110; Pulse 103; Resp 18; Temp 99.0(TE); Pulse Ox 98% on R/A; Weight 111.13 kg; vg1 Height 5 ft. 5 in. (165.10 cm); Pain 5/10; 19:13 BP 156 / 105; Pulse 104; Resp 20; Pulse Ox 97% on R/A; eh3 20:00 BP 131 / 98; Pulse 85; Resp 21; Pulse Ox 97% on R/A; eh3 21:00 BP 143 / 92; Pulse 80; Resp 18; Pulse Ox 96% on R/A; Pain 9/10; eh3 22:00 BP 140 / 79; Pulse 67; Resp 18; Pulse Ox 96% on R/A; eh3 23:00 BP 127 / 77; Pulse 74; Resp 16; Pulse Ox 96% on R/A; eh3 18:55 Body Mass Index 40.77 (111.13 kg, 165.10 cm) vg1 MDM: 20:50 Patient medically screened. snw 08/26 02:25 Data reviewed: vital signs, nurses notes. Data interpreted: Pulse oximetry: on room air snw is 96 %. Interpretation: acceptable. Counseling: I had a detailed discussion with the patient and/or guardian regarding: the historical points, exam findings, and any diagnostic results supporting the discharge/admit diagnosis, the presence of at least one elevated blood pressure reading (>120/80) during this emergency department visit, lab results, radiology results, the need for outpatient follow up, to return to the emergency department if symptoms worsen or persist or if there are any questions or concerns that arise at home. Response to treatment: the patient's symptoms have markedly improved after treatment. Special discussion: Based on the patient's history, exam, and Dx evaluation, there is no indication for emergent intervention or inpatient Tx. It is understood by the patient/guardian that if the Sx's persist or worsen they need to return immediately for re-evaluation. Based on the history and exam findings, there is no indication for further emergent testing or inpatient evaluation. I discussed with the patient/guardian the need to see the liner machine operator for further evaluation of the symptoms. I discussed with the patient/guardian the need to see the primary care provider for further evaluation of the symptoms. 08/25 19:13 Order name: Basic Metabolic Panel [facility] 08/25 19:13 Order name: CBC with Diff [facility] 08/25 19:13 Order name: Troponin HS [facility] 08/25 19:25 Order name: CBC with Automated Diff; Complete Time: 20:11 EDMS 08/25 19:46 Order name: Basic Metabolic Panel; Complete Time: 20:11 EDMS 08/25 19:46 Order name: Troponin High Sensitivity; Complete Time: 20:11 EDMS 08/25 19:13 Order name: XRAY Chest (1 view) 3 08/25 20:13 Order name: SARS RAPID w 08/25 20:13 Order name: CT Chest For PE Angio snw 08/25 20:37 Order name: Flu snw 08/25 20:57 Order name: SARS-COV-2 Antigen Rapid; Complete Time: 20:58 EDMS 08/25 21:19 Order name: Influenza Screen (A ; Complete Time: 21:21 EDMS 08/25 23:01 Order name: Troponin High Sensitivity snw 08/25 23:54 Order name: Troponin High Sensitivity; Complete Time: 23:54 EDMS 08/25 19:13 Order name: EKG; Complete Time: 19:13 3 08/25 19:13 Order name: Cardiac monitoring; Complete Time: 19:13 3 08/25 19:13 Order name: EKG - Nurse/Tech; Complete Time: 19:13 3 08/25 19:13 Order name: IV Saline Lock; Complete Time: 19:13 3 08/25 19:13 Order name: Labs collected and sent; Complete Time: 19:13 3 08/25 19:13 Order name: O2 Per Protocol; Complete Time: 19:13 3 08/25 19:13 Order name: O2 Sat Monitoring; Complete Time: 19:13 3 08/25 20:30 Order name: RAD; Complete Time: 20:37 EDMS 08/25 21:10 Order name: CT; Complete Time: 21:11 EDMS 08/25 23:01 Order name: EKG; Complete Time: 23:01 snw 08/25 23:01 Order name: EKG - Nurse/Tech; Complete Time: 23:32 snw EC/02 19:13 Rhythm is regular. QRS Bee is Normal. IA interval is normal. QRS interval is snw prolonged. QT interval is normal. T waves are Normal. No ST changes noted. Clinical impression: NSR w/ Non-specific ST/T Changes and Abnormal EKG without significant change. 23:00 Rhythm is regular. QRS Bee is Normal. IA interval is normal. QRS interval is snw prolonged. QT interval is normal. No Q waves. Clinical impression: NSR w/ Non-specific ST/T Changes and Abnormal EKG without significant change. Administered Medications: 20:25 Drug: Valium (diazepam) 10 mg Route: PO; as6 21:56 Follow up: Response: Anxiety decreased eh3 Disposition Summary: 08/25/22 23:55 Discharge Ordered Location: Home snw Condition: Stable snw Diagnosis - Chest pain, unspecified snw - Unspecified right bundle-branch block snw Followup: snw - With: Private Physician - When: 2 - 3 days - Reason: Recheck today's complaints, Continuance of care, Re-evaluation by your physician Followup: snw - With: Emergency Department - When: As needed - Reason: Worsening of condition Discharge Instructions: - Discharge Summary Sheet snw - Nonspecific Chest Pain, Adult snw - Hypertension, Adult snw - Aspirin and Your Heart snw - Right Bundle Branch Block snw Forms: - Medication Reconciliation Form snw - Thank You Letter snw - Antibiotic Education snw - Prescription Opioid Use snw - Work release form snw Prescriptions: - Pepcid 20 mg Oral Tablet - take 1 tablet by ORAL route once daily; 20 tablet; Refills: 0, Product snw Selection Permitted Signatures: Dispatcher [employer] Denise Davis, CARTON FILLING MACHINE OPERATOR-C CARTON FILLING MACHINE OPERATOR-Csnw Abbi Mtz, RN RN vg1 German Burns, RN RN as6 Charlene Hewitt, RN RN eh3
--- NOTE | 2022-08-25 23:56 | ER ---
Nurse's Notes [facility] Name: Willy Feliz Jr Age: 27 yrs Sex: Male : 1995 Arrival Date: 08/25/2022 Time: 18:34 Bed 18 Private MD: Diagnosis: Chest pain, unspecified;Unspecified right bundle-branch block Presentation: 08/25 18:55 Chief complaint: Patient states: CP began at 1800 today with "a little bit " of SOB; vg1 states headache or blurred vision, denies NV. Coronavirus screen: Vaccine status: Patient reports receiving the 2nd dose of the covid vaccine. Client denies travel out of the [place] in the last 14 days. Ebola Screen: Patient negative for fever greater than or equal to 101.5 degrees Fahrenheit, and additional compatible Ebola Virus Disease symptoms Patient denies exposure to infectious person. Initial Sepsis Screen: Does the patient meet any 2 criteria? HR > 90 bpm. Does the patient have a suspected source of infection? No. Patient's initial sepsis screen is negative. Risk Assessment: Do you want to hurt yourself or someone else? Patient reports no desire to harm self or others. Onset of symptoms was August 25, 2022. 18:55 Method Of Arrival: Ambulatory vg1 18:55 Acuity: BRUCE 3 vg1 Triage Assessment: 18:56 General: Appears uncomfortable, Behavior is cooperative, anxious. Pain: Complains of vg1 pain in chest Pain does not radiate. Pain currently is 5 out of 10 on a pain scale. Quality of pain is described as dull, Pain began 1 hour ago. Neuro: Level of Consciousness is awake, alert, obeys commands, Oriented to person, place, time, situation, Denies blurred vision headache. Cardiovascular: Patient's skin is warm and dry. GI: Patient currently denies nausea, vomiting. Historical: - Allergies: 18:56 Dilaudid (Rash); vg1 - PMHx: 18:56 Anxiety; Asthma; vg1 - PSHx: 18:56 Appendectomy; vg1 - Immunization history:: Client reports receiving the 2nd dose of the Covid vaccine. - Social history:: Smoking status: Patient denies any tobacco usage or history of. Screenin:13 Abuse screen: Denies threats or abuse. Denies injuries from another. Nutritional eh3 screening: No deficits noted. Tuberculosis screening: No symptoms or risk factors identified. Fall Risk None identified. Assessment: 19:13 General: Appears distressed, uncomfortable, Behavior is cooperative, appropriate for eh3 age, anxious, crying. Pain: Complains of pain in chest Pain does not radiate. Pain currently is 8 out of 10 on a pain scale. Quality of pain is described as stabbing, squeezing, Pain began 1 day ago. Is continuous, Alleviated by nothing. Neuro: Level of Consciousness is awake, alert, obeys commands, Oriented to person, place, time, situation. Cardiovascular: Capillary refill < 3 seconds Patient's skin is warm and dry. Respiratory: Airway is patent Respiratory effort is even, unlabored. 20:15 Reassessment: Patient and/or family updated on plan of care and expected duration. Pain eh3 level reassessed. Patient is alert, oriented x 3, equal unlabored respirations, skin warm/dry/pink. 21:08 Reassessment: Patient and/or family updated on plan of care and expected duration. Pain eh3 level reassessed. Patient is alert, oriented x 3, equal unlabored respirations, skin warm/dry/pink. CT reports pt vomited while in CT. Pt states he no longer feels nauseous. Complains of frontal h/a, continuing chest pain, and numbness/tingling in left foot. 22:00 Reassessment: Patient and/or family updated on plan of care and expected duration. Pain eh3 level reassessed. Patient is alert, oriented x 3, equal unlabored respirations, skin warm/dry/pink. 23:00 Reassessment: Patient and/or family updated on plan of care and expected duration. Pain eh3 level reassessed. Patient is alert, oriented x 3, equal unlabored respirations, skin warm/dry/pink. Vital Signs: 18:55 BP 149 / 110; Pulse 103; Resp 18; Temp 99.0(TE); Pulse Ox 98% on R/A; Weight 111.13 kg; vg1 Height 5 ft. 5 in. (165.10 cm); Pain 5/10; 19:13 BP 156 / 105; Pulse 104; Resp 20; Pulse Ox 97% on R/A; eh3 20:00 BP 131 / 98; Pulse 85; Resp 21; Pulse Ox 97% on R/A; eh3 21:00 BP 143 / 92; Pulse 80; Resp 18; Pulse Ox 96% on R/A; Pain 9/10; eh3 22:00 BP 140 / 79; Pulse 67; Resp 18; Pulse Ox 96% on R/A; eh3 23:00 BP 127 / 77; Pulse 74; Resp 16; Pulse Ox 96% on R/A; eh3 18:55 Body Mass Index 40.77 (111.13 kg, 165.10 cm) vg1 Vitals: 19:13 Cardiac Rhythm Assessment Sinus tach. eh3 ED Course: 18:34 Patient arrived in ED. am2 18:56 Triage completed. vg1 18:56 Arm band placed on. vg1 19:13 Patient has correct armband on for positive identification. Placed in gown. Bed in low eh3 position. Call light in reach. Side rails up X2. Client placed on continuous cardiac and pulse oximetry monitoring. NIBP monitoring applied. bus monitor on. Door closed. Noise minimized. Lights dimmed. Warm blanket given. 19:13 Inserted saline lock: 20 gauge in right antecubital area, using aseptic technique. eh3 Blood collected. 19:13 No provider procedures requiring assistance completed. Patient maintains SpO2 eh3 saturation greater than 95% on room air. 19:36 Charlene Hewitt, MINO is Primary Nurse. eh3 20:10 Luis Valdez MD is Attending Physician. kdr 20:11 Denise Galindo FNP-C is [facility]. snw 20:25 SARS RAPID Sent. as6 23:22 Troponin High Sensitivity Sent. eh3 08/26 00:12 IV discontinued, intact, bleeding controlled, No redness/swelling at site. Pressure eh3 dressing applied. Administered Medications: 08/25 20:25 Drug: Valium (diazepam) 10 mg Route: PO; as6 21:56 Follow up: Response: Anxiety decreased eh3 Medication: 19:13 VIS not applicable for this client. eh3 Outcome: 23:55 Discharge ordered by . snw 08/26 00:12 Discharged to home ambulatory, with significant other. eh3 Condition: stable Discharge instructions given to patient, significant other, Instructed on discharge instructions, follow up and referral plans. medication usage, Demonstrated understanding of instructions, follow-up care, medications, Prescriptions given X 1. 00:12 Patient left the ED. eh3 Signatures: Luis Valdez MD MD kdr Waters, Shelly, CUFF MAKER-C CUFF MAKER-Csnw Astrid Madrigal Victoria, RN RN vg1 German Burns, RN RN as6 Charlene Hewitt, MINO RN eh3
[2022-08-26 00:29] VITALS: TEMP 99
[2022-08-26 00:42] VITALS: O2SAT 96
[2022-08-26 00:44] VITALS: BP 127/77
--- NOTE | 2022-08-26 14:13 | EKG ---
Test Date: 2022-08-25 Test Time: 19:03:52 Drum Loader And Unloader: PEPE MEASUREMENT RESULTS: Intervals: Rate: 106 MA: 174 QRSD: 116 QT: 344 QTc: 456 [place]: P: 45 MA: 174 QRS: 2 T: 36 INTERPRETIVE STATEMENTS: Sinus tachycardia Incomplete right bundle branch block Borderline ECG Compared to ECG 01/15/2018 19:23:04 Sinus rhythm no longer present Electronically Signed On 08-26-22 14:11:50 CDT by Edgar Quigley
--- NOTE | 2022-08-27 06:26 | EKG ---
Test Date: 2022-08-25 Test Time: 23:32:49 Missileman: JASON MEASUREMENT RESULTS: Intervals: Rate: 69 WI: 180 QRSD: 122 QT: 392 QTc: 420 [place]: P: 22 WI: 180 QRS: 28 T: 27 INTERPRETIVE STATEMENTS: Normal sinus rhythm Right bundle branch block Abnormal ECG Compared to ECG 08/25/2022 19:03:52 Right bundle-branch block now present Sinus tachycardia no longer present Incomplete right bundle-branch block no longer present Electronically Signed On 08-27-22 06:25:11 CDT by Kasi Navarro
== END 2022-08-26 00:12 | disposition home or self-care (01) ==
LOC: ER 18:33
DX: R07.9 Chest pain, unspecified (principal); I45.10 Unspecified right bundle-branch block; F41.9 Anxiety disorder, unspecified; J45.909 Unspecified asthma, uncomplicated; Z20.822 Contact with and (suspected) exposure to COVID-19
CPT/HCPCS: 93005 ×2; 85025; 80048; 36415; 84484 ×2; 87804 ×2; 71275; 71045; 99285; 87811; Q9967

== ENCOUNTER → 2024-02-14 | Emergency (ER) | payer BC ==
[~2024-02-14] MED LIST: AMLODIPINE 10 MG TAB ONE; ASPIRIN 81 MG CHEWABLE TABLET ONE; NA CHLORIDE 0.9% 500 ML ONE; ONDANSETRON 4 MG/2 ML VIAL ONE; lisinopriL 10 MG TAB ONE
--- OUTSIDE RECORDS SUMMARY | 2024-02-14 13:15 | XMS REPORT | Continuity of Care Document ---
Author Name Unknown Address [address] [facility] [address] [place] [address] [facility] Address [address] [facility] [address] [place] [address] Care Team Providers Care Brand Manager Name Role Phone Amina Drummond MD Primary Care Physician NAJMA PUCKETT Attending Clinician Unavailable Najma Puckett MD Attending Clinician [phone] Doctor Unassigned, [place] Attending Clinician U RAMILA Veliz Attending Clinician Unavailab le 2, [facility] Attending Clinician Unavailable DEB HARRINGTON Attending Clinician Unavailable Deb Harrington PA-C Attending Clinician [phone] Unknown, Attending Attending Clinician Unavailab COLUMBA Murrell Attending Clinician Unavailable THERESA CARRILLO Attending Clinician Unavailable LAB90 Attending Clinician Unavailable Amina Drummond MD Attending Clinician [phone] Lab, Adc Fam Pob I Attending Clinician Unavailab Gretchen Epps Attending Clinician [phone] GRETCHEN SANDS Attending Clinician Unavailable Payers Payer Name Policy Type Policy Number Effective Date Expirati on Date Source [employer] [place] [id number] 2019 00:00:00 BCBS 2 [id number] 2022 00:00:00 Problems Condition Name Condition Details Condition Category Status Onset Date Resolution Date Last Treatment Date Treating Clinician Comments Source Elevated liver enzymes Elevated liver enzymes Disease Active 02-12 00:00: 00 [facility] Asymptomat ic hypertensi ve urgency Asymptomat ic hypertensi ve urgency Disease Active 02-12 00:00: 00 [facility] Oropharyng eal dysphagia Oropharyng eal dysphagia Disease Active 05-01 00:00: 00 [facility] GERD without esophagiti s GERD without esophagiti s Disease Active 05-01 00:00: 00 [facility] Elevated liver function tests Elevated liver function tests Disease Active 05-01 00:00: 00 [facility] Essential hypertensi on Essential hypertensi on Disease Active 05-01 00:00: 00 [facility] Anxiety Anxiety Disease Active 05-01 00:00: 00 [facility] Encounter to establish care with new doctor Encounter to establish care with new doctor Disease Active 05-01 00:00: 00 [facility] Moderate recurrent major depression Moderate recurrent major depression Disease Active 05-01 00:00: 00 [facility] Need for hepatitis C screening test Need for hepatitis C screening test Disease Active 05-01 00:00: 00 [facility] Decreased hearing of both ears Decreased hearing of both ears Disease Active 05-01 00:00: 00 [facility] Stress at work Stress at work Disease Active 05-01 00:00: 00 [facility] Enlarged tonsils Enlarged tonsils Disease Active 05-01 00:00: 00 [facility] BMI 37.0-37.9, adult BMI 37.0-37.9, adult Disease Active 05-01 00:00: 00 [facility] No known active problems No known active problems Disease Re Munoz Allergies, Adverse Reactions, Alerts Allergy Name Allergy Type Status Severity Reaction(s) Onset Date Inactive Date Treating Clinician Comments Source NO KNOWN ALLERGIE S Drug Class Active [facility] Social History Social Habit Start Date Stop Date Quantity Comments Source Gender identity [facility] Sexual orientation U [facility] History of Social function 2023-05-01 00:00:00 2023-05-01 00:00:00 [facility] Exposure to SARS-CoV-2 (event) 2023-04-02 00:00:00 2023-04-12 20:02:00 Not sure [facility] Tobacco use and exposure 2021-11-13 00:00:00 2021-11-13 00:00:00 Smokeless tobacco non-user Re Sesarahmikel Sex Assigned At 1995 00:00:00 1995 00:00:00 Re Tammy Smoking Status Start Date Stop Date Source Tobacco smoking consumption unknown [facility] Never smoked tobacco Re Sesarahmikel Medications Ordered Medication Name Filled Medication Name Start Date Stop Date Current Medication? Ordering Clinician Indication Dosage Frequency Signature (SIG) Comments Components Source propranoloL 10 mg tablet 02-12 00:00: 00 Yes [id number] 10mg Take 1 tablet by mouth in the morning and 1 tablet in the evening. [facility] PARoxetine 10 mg tablet 0 02-12 00:00: 00 Yes [id number] 10mg Take 1 tablet by mouth in the morning. [facility] propranoloL 10 mg tablet 02-12 00:00: 00 Yes [id number] 10mg Take 1 tablet by mouth in the morning and 1 tablet in the evening. [facility] PARoxetine 10 mg tablet 0 02-12 00:00: 00 Yes [id number] 10mg Take 1 tablet by mouth in the morning. [facility] pantoprazol e 20 mg EC tablet 05-01 00:00: 00 Yes [id number] 20mg Take 1 tablet by mouth in the morning. [facility] pantoprazol e 20 mg EC tablet 05-01 00:00: 00 Yes [id number] 20mg Take 1 tablet by mouth in the morning. [facility] pantoprazol e 20 mg EC tablet 0 05-01 00:00: 00 Yes [id number] 20mg Take 1 tablet by mouth in the morning. [facility] pantoprazol e 20 mg EC tablet 2022-0 05-01 00:00: 00 Yes [id number] 20mg Take 1 tablet by mouth in the morning. [facility] pantoprazol e 20 mg EC tablet 0 05-01 00:00: 00 Yes [id number] 20mg Take 1 tablet by mouth in the morning. [facility] pantoprazol e 20 mg EC tablet 2022-0 05-01 00:00: 00 Yes [id number] 20mg Take 1 tablet by mouth in the morning. [facility] pantoprazol e 20 mg EC tablet 0 05-01 00:00: 00 Yes [id number] 20mg Take 1 tablet by mouth in the morning. [facility] pantoprazol e 20 mg EC tablet 0 05-01 00:00: 00 Yes [id number] 20mg Take 1 tablet by mouth in the morning. [facility] pantoprazol e 20 mg EC tablet 0 05-01 00:00: 00 Yes [id number] 20mg Take 1 tablet by mouth in the morning. [facility] pantoprazol e 20 mg EC tablet 05-01 00:00: 00 Yes [id number] 20mg Take 1 tablet by mouth in the morning. [facility] pantoprazol e 20 mg EC tablet 05-01 00:00: 00 Yes [id number] 20mg Take 1 tablet by mouth in the morning. [facility] dexamethaso ne sod phos PF injection 10 mg 04-13 02:15: 00 04-13 01:21 :00 No [id number] 10mg [facility] dexamethaso ne sod phos PF injection 10 mg 04-13 02:15: 00 04-13 01:21 :00 No [id number] 10mg 10 mg, Intramuscu lar, ONCE, 1 dose, On 04/12/23 at 2115, 1 mL [facility] dexamethaso ne sod phos PF injection 10 mg 04-13 02:15: 00 04-13 01:21 :00 No [id number] 10mg [facility] dexamethaso ne sod phos PF injection 10 mg 04-13 02:15: 00 04-13 01:21 :00 No [id number] 10mg 10 mg, Intramuscu lar, ONCE, 1 dose, On 04/12/23 at 2115, 1 mL [facility] No known medications 2020-11 17:07: 52 No No known medication antonio Munoz Immunizations Ordered Immunization Name Filled Immunization Name Date Status Comments Source TDAP 2023-05-01 00:00:00 Completed [facility] TDAP 2023-05-01 00:00:00 Completed [facility] TDAP 2023-05-01 00:00:00 Completed [facility] TDAP 2023-05-01 00:00:00 Completed [facility] TDAP 2023-05-01 00:00:00 Completed [facility] TDAP 2023-05-01 00:00:00 Completed [facility] Tdap- (Boostrix, Adacel) 2018-02-09 00:00:00 Completed Re Munoz TDAP Unknown Completed [facility] TDAP Unknown Completed [facility] TDAP Unknown Completed [facility] TDAP Unknown Completed [facility] SARS-COV-2 COVID 19 ROLANDA SUCROSE VACCINE +, , 0.3 ML (30 MCG), IM PFIZER (CASTILLO TOP) Unknown Completed [facility] TDAP Unknown Completed [facility] SARS-COV-2 COVID 19 ROLANDA SUCROSE VACCINE 12+, , 0.3 ML (30 MCG), IM PFIZER (CASTILLO TOP) Unknown Completed [facility] Vital Signs Vital Name Observation Time Observation Value Comments S berto Systolic blood pressure 2024-02-13 18:42:00 144 mm[Hg] [facility] Diastolic blood pressure 2024-02-13 18:42:00 103 mm[Hg] [facility] Heart rate 2024-02-13 17:58:00 86 /min Ghulame [facility] Body temperature 2024-02-13 17:58:00 36.61 Amarilis [facility] Respiratory rate 2024-02-13 17:58:00 18 /min [facility] Body height 2024-02-13 17:58:00 167.6 cm [facility] Body weight 2024-02-13 17:58:00 115.395 kg [facility] BMI 2024-02-13 17:58:00 41.06 kg/m2 [facility] Oxygen saturation in Arterial blood by Pulse oximetry 2024-02-13 17:58:00 95 /min [facility] Systolic blood pressure 2023-05-01 14:30:00 143 mm[Hg] [facility] Diastolic blood pressure 2023-05-01 14:30:00 96 mm[Hg] [facility] Heart rate 2023-05-01 14:28:00 69 /min Un[facility] Body temperature 2023-05-01 14:28:00 36 Amarilis [facility] Respiratory rate 2023-05-01 14:28:00 18 /min [facility] Body height 2023-05-01 14:28:00 170.2 cm [facility] Body weight 2023-05-01 14:28:00 109.317 kg [facility] BMI 2023-05-01 14:28:00 37.75 kg/m2 [facility] Oxygen saturation in Arterial blood by Pulse oximetry 2023-05-01 14:28:00 97 /min [facility] Systolic blood pressure 2023-04-13 01:03:00 128 mm[Hg] [facility] Diastolic blood pressure 2023-04-13 01:03:00 89 mm[Hg] [facility] Heart rate 2023-04-13 01:02:00 121 /min [facility] Body temperature 2023-04-13 01:02:00 37.11 Amarilis [facility] Respiratory rate 2023-04-13 01:02:00 16 /min [facility] Body height 2023-04-13 01:02:00 167.6 cm [facility] Body weight 2023-04-13 01:02:00 112.038 kg [facility] BMI 2023-04-13 01:02:00 39.87 kg/m2 [facility] Oxygen saturation in Arterial blood by Pulse oximetry 2023-04-13 01:02:00 99 /min [facility] Systolic blood pressure 2021-11-13 22:13:00 138 mm[Hg] Re ybo ld Diastolic blood pressure 2021-11-13 22:13:00 86 mm[Hg] Re ybo ld Heart rate 2021-11-13 22:13:00 87 /min Kel y ybmikel Body temperature 2021-11-13 22:13:00 36.56 Amarilis Rerichie Marinold Respiratory rate 2021-11-13 22:13:00 14 /min Re Laroseybold Body height 2021-11-13 22:13:00 167.6 cm Gladys ey Seybold Body weight 2021-11-13 22:13:00 109.77 kg Gladys ey Seybold BMI 2021-11-13 22:13:00 39.06 kg/m2 Gladys ey Seybold Procedures Procedure Date / Time Performed Performing Clinician Source SARS-COV-2 COVID 19 ROLANDA SUCROSE VACCINE 12+, , 0.3 ML (30 MCG), IM PFIZER (CASTILLO TOP) 2024-02-13 18:25:02 Lavern [facility] FREE T4 2023-05-01 16:17:00 Lavern [facility] THYROID STIMULATING HORMONE 2023-05-01 16:17:00 Lavern [facility] HEPATIC FUNCTION PANEL (15100) (ALB,T.PRO,BILI T,BU/BC,ALT,AST,ALK PHOS) 2023-05-01 16:17:00 Lavern [facility] BASIC METABOLIC PANEL (NA, K, CL, CO2, GLUCOSE, BUN, CREATININE, CA) 2023-05-01 16:17:00 Lavern [facility] LIPID PANEL (69737)(TOTAL CHOLESTEROL, TRIGLYCERIDES, HDL) 2023-05-01 16:17:00 Lavern [facility] CBC WITH DIFF 2023-05-01 16:17:00 Najma Puckett [facility] GLYCOSYLATED HEMOGLOBIN (A1C) 2023-05-01 16:17:00 Najma Puckett [facility] HCV ANTIBODY 2023-05-01 16:17:00 Njama Puckett [facility] FREE T3 2023-05-01 16:17:00 Lavern [facility] TDAP VACCINE, >11 YRS, IM 2023-05-01 15:38:37 Najma Puckett [facility] POCT MOLECULAR STREP 2023-04-13 01:00:00 Unknown, Atte nabor [facility] ASSIGNMENT OF BENEFITS 2023-04-13 00:51:13 Docto r Unassigned, [place] [facility] PATIENT QUESTIONNAIRE 2020-08-08 05:01:00 Doctor Unassigned, [place] [facility] Encounters Start Date/Time End Date/Time Encounter Type Admission Type Attending Clinicians Care Facility Care Department Encounter ID Source 2024-02-13 13:00:00 2024-02-13 13:47:46 Outpatient R SHERRONRADHA NAJMA [facility] [id number] [facility] 2024-02-13 13:00:00 2024-02-13 13:47:46 Office Visit Najma Puckett [facility] 1.2.840.114 350.1.13.10 4.2.7.2.686 [id number] [facility] 2023-08-07 15:20:00 2023-08-07 15:20:00 Outpatient R SHERRONRADHA NAJMA [facility] [id number] [facility] 2023-06-18 00:00:00 2023-06-18 00:00:00 Patient Secure Msg Doctor Unassigned, [place] [facility] 1.2.840.114 350.1.13.10 4.2.7.2.686 [id number] [facility] 2023-06-14 00:00:00 2023-06-14 00:00:00 Patient Secure Msg Doctor Unassigned, [place] [facility] 1.840.114 350.1.13.10 4.2.7.2.686 [id number] [facility] 2023-05-26 09:45:00 2023-05-26 09:45:00 Outpatient R RAMILA CRUZ [facility] [id number] [facility] 2023-05-05 00:00:00 2023-05-05 00:00:00 Patient Secure Msg Doctor Unassigned, [place] [facility] 1.84.114 350.1.13.10 4.2.7.2.686 [id number] [facility] 2023-05-03 00:00:00 2023-05-03 00:00:00 Patient Secure Msg Doctor Unassigned, [place] [facility] 1.84.114 350.1.13.10 4.2.7.2.686 [id number] [facility] 2023-05-01 11:00:00 2023-05-01 13:00:28 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 2, Adc Lab Lavern [facility] 1..840.114 350.1.13.10 4.2.7.2.686 [id number] [facility] 2023-05-01 11:00:00 2023-05-01 13:00:28 Outpatient R NAJMA PUCKETT [facility] [id number] [facility] 2023-05-01 09:20:00 2023-05-01 10:58:15 Office Visit Najma Puckett [facility] 1..840.114 350.1.13.10 4.2.7.2.686 [id number] [facility] 2023-05-01 00:00:00 2023-05-01 00:00:00 Letter (Out) Najma Puckett [facility] 1..840.114 350.1.13.10 4.2.7.2.686 [id number] [facility] 2023-04-12 20:00:00 2023-04-12 20:24:14 Outpatient R DEB HARRINGTON [facility] [id number] [facility] 2023-04-12 20:00:00 2023-04-12 20:24:14 Urgent Care Deb Harrington Unknown, Attending [facility] 1..840.114 350.1.13.10 4.2.7.2.686 [id number] [facility] 2023-04-12 00:00:00 2023-04-12 00:00:00 Orders Only Doctor Unassigned, [place] [facility] 1..840.114 350.1.13.10 4.2.7.2.686 [id number] [facility] 2023-03-03 00:00:00 2023-03-03 00:00:00 Outpatient COLUMBA ALVAREZ [id number] [facility] 2022-09-21 00:00:00 2022-09-21 00:00:00 Outpatient COLUMBA ALVAREZ [id number] [facility] 2022-09-20 11:05:00 2022-09-20 11:05:00 Outpatient LAB90 RE PARIKH [id number] Re charlie 2022-09-06 15:15:00 2022-09-06 15:15:00 Outpatient COLUMBA ALVAREZ [id number] Re charlie 2021-11-13 16:30:00 2021-11-13 17:00:00 Office Visit Amina Drummond 1.2.840.114 350.1.13.13 1.2.7.2.686 [id number] Re Munoz 2020-08-22 08:20:42 2020-08-22 08:40:42 Laboratory Only Lab, Adc Fam Pob I [facility] 1.2840.114 350.1.13.10 4.2.7.2.686 [id number] 2020-08-22 08:20:42 2020-08-22 08:40:42 Laboratory Only Lab, [facility] Fam Pob I Shavon [facility] 1.840.114 350.1.13.10 4.2.7.2.686 [id number] [facility] 2020-08-22 08:20:00 2020-08-22 08:20:00 Outpatient R [facility] [id number] [facility] 2020-08-08 00:00:00 2020-08-08 00:00:00 Orders Only Doctor Unassigned, [place] [facility] 1.2840.114 350.1.13.10 4.2.7.2.686 [id number] 2020-08-08 00:00:00 2020-08-08 00:00:00 Orders Only Doctor Unassigned, [place] [facility] 1.2840.114 350.1.13.10 4.2.7.2.686 [id number] [facility] 2020-08-07 12:53:28 2020-08-07 13:13:28 Laboratory Only Lab, Adc Fam Pob I [facility] 1.2840.114 350.1.13.10 4.2.7.2.686 [id number] 2020-08-07 12:53:28 2020-08-07 13:13:28 Laboratory Only Lab, Adc Fam Pob I Shavon [facility] .114 350.1.13.10 4.2.7.2.686 [id number] [facility] 2020-08-07 13:00:00 2020-08-07 13:00:00 Outpatient R [facility] [id number] [facility] 2020-07-16 00:00:00 2020-07-16 00:00:00 Patient Secure Msg Doctor Unassigned, [place] [facility] 1..114 350.1.13.10 4.2.7.2.686 [id number] [facility] 2020-07-14 12:50:48 2020-07-14 13:10:48 Laboratory Only Lab, [facility] Pob I [facility] 1.114 350.1.13.10 4.2.7.2.686 [id number] 2020-07-14 12:50:48 2020-07-14 13:10:48 Laboratory Only Lab, [facility] Pob I Gretchen Sands [facility] 1.114 350.1.13.10 4.2.7.2.686 [id number] [facility] 2020-07-14 13:00:00 2020-07-14 13:00:00 Outpatient R GRETCHEN SANDS [facility] [id number] [facility] 2020-07-14 00:00:00 2020-07-14 00:00:00 Letter (Out) Doctor Unassigned, [place] [facility] 1.0.114 350.1.13.10 4.2.7.2.686 [id number] 2020-07-14 00:00:00 2020-07-14 00:00:00 Letter (Out) Doctor Unassigned, [place] [facility] 1.0.114 350.1.13.10 4.2.7.2.686 [id number] [facility] Results Test Description Test Time Test Comments Results Result Co mments Source [facility] [id number] 18:08:57 * Test Item Value Reference Range Interpretation Comme nts TSH (test code = 3149720533) 1.15 See_Comment [Automated messa ge] The system which generated this result transmitted reference range: 0.45 - 4.70 mIU/L. The reference range was not used to interpret this result as normal/abnormal. Lab Interpretation (test code = 38519-5) [facility] [id number] 17:55:34* Test Item Value Reference Range Interpretation Comme nts FREE T4 (test code = 5302908957) 1.35 See_Comment [Automated messa ge] The system which generated this result transmitted reference range: 0.78 - 2.20 ng/dL:. The reference range was not used to interpret this result as normal/abnormal. Lab Interpretation (test code = 41486-8) [facility] [id number] 17:55:08* Test Item Value Reference Range Interpretation Comme nts FREE T3 (test code = 0692511330) 4.77 pg/mL 2.77-5.27 Lab Interpretation (test cod e = 46038-3) [facility] (16153[facility] (ALB,T.PRO,BILI T,BU/BC,ALT,AST,ALK PHOS)2023-05-01 17:42:09* Test Item Value Reference Range Interpretation Comme nts TOTAL BILI (test code = 0237662109) 1.7 mg/dL 0.1-1.1 H BILI UNCON (test code = 0231391209) 1.4 mg/dL 0.1-1.1 H BILI CONJ (test code = 7016713868) 0.0 mg/dL 0.0-0.3 T PROTEIN (test code = 5939796982) 7.3 g/dL 6.3-8.2 ALBUMIN (test code = 5209291543) 4.5 g/dL 3.5-5.0 ALK PHOS (test code = 4720325535) 86 U/L 34-122 ALTv (test code = 1742-6) 101 U/L 5-50 H AST(SGOT) (test code = 6170892376) 48 U/L 13-40 H Lab Interpretation (test cod e = 78256-9) Abnormal [facility] METABOLIC PANEL (NA, K, CL, CO2, GLUCOSE, BUN, CREATININE, CA)2023-05-01 17:42:09* Test Item Value Reference Range Interpretation Comme nts NA (test code = 7302467278) 140 mmol/L 135-145 K (test code = 9874981638) 4.5 mmol/L 3.5-5.0 CL (test code = 0292795112) 104 mmol/L 98-108 CO2 TOTAL (test code = 5642090510) 26 mmol/L 23-31 AGAP (test code = 6198293435) 10 2-16 BUN (test code = 9682382553) 16 mg/dL 7-23 GLUCOSE (test code = 4449825305) 97 mg/dL 70-110 CREATININE (test code = 4754904964) 0.93 mg/dL 0.60-1.25 CALCIUM (test code = 3692735552) 9.4 mg/dL 8.6-10.6 eGFR (test code = 7267060598) 96.1 mL/min/1.73m2 OLGA (test code = OLGA) Association of Glomerular Filtration Rate (GFR) and Staging of Kidney Disease* + + +- +| GFR (mL/min/1.73 m2) ?| With Kidney Damage ?| ?Without Kidney Damage+ ------+ ----+ ------+| ?>90 ?| ?Stage one ?| ? Normal ?+ -+ + -+| ?60-89 ?| ?Stage two ?| ? Decreased GFR ? + + +- +| ?30-59 ?| ?Stage three ?| ? Stage three ? + + +- +| ?15-29 ?| ?Stage four ? | ? Stage four ?+ -+ + -+| ?<15 (or dialysis) ? ?| ?Stage five ? | ? Stage five ?+ -+ + -+ *Each stage assumes the associated GFR level has been in effect for at least three months. ?Stages 1 to 5, with or without kidney disease, indicate chronic kidney disease. Notes: Determination of stages one and two (with eGFR >59mL/min/1.73 m2) requires estimation of kidney damage for at least three months as defined by structural or functional abnormalities of the kidney, manifested by either:Pathological abnormalities or Markers of kidney damage (including abnormalities in the composition of the blood or urine or abnormalities in imaging tests). [facility] (83430)(TOTAL CHOLESTEROL, TRIGLYCERIDES, HDL)2023-05-01 17:42:09* Test Item Value Reference Range Interpretation Comme nts CHOL (test code = 1813847652) 211 mg/dL 120-200 H HDL (test code = 4908798684) 31 mg/dL >=40 L HDLC RATIO (test code = 5292875355) 6.8 <=5.0 H TRIG (test code = 1027081097) 148 mg/dL 30-170 LDL CHOL (test code = 90897-9) 150 mg/dL <=160 VLDL (test code = 2971354440) 30 mg/dL 5-60 Lab Interpretation (test cod e = 30861-9) Abnormal [facility] (A1C)2023-05-01 17:38:18* Test Item Value Reference Range Interpretation Comme nts HGB A1C (test code = 4548-4) 5.6 % 4.0-5.7 OLGA (test code = OLGA) Reference RangesNormal: <5.7%Prediabetes: 5.7 - 6.4%Diabetes: > 6.5% Lab Interpretation (test code = 95311-1) [facility] [id number] 17:16:47* Test Item Value Reference Range Interpretation Comme nts WBC (test code = 6690-2) 5.79 See_Comment [Automated [employer] CareTo[employer]] The system which generated this result transmitted reference range: 4.20 - 10.70 10*3/?L. The reference range was not used to interpret this result as normal/abnormal. RBC (test code = 789-8) 5.48 See_Comment [Automated [employer]] The system which generated this result transmitted reference range: 4.26 - 5.52 10*6/?L. The reference range was not used to interpret this result as normal/abnormal. HGB (test code = 718-7) 15.6 g/dL 12.2-16.4 HCT (test code = 4544-3) 46.1 % 38.4-49.3 MCV (test code = 787-2) 84.1 fL 81.7-95.6 MCH (test code = 785-6) 28.5 pg 26.1-32.7 MCHC (test code = 786-4) 33.8 g/dL 31.2-35.0 RDW-SD (test code = 19813-9) 37.8 fL 38.5-51.6 L RDW-CV (test code = 788-0) 12.6 % 12.1-15.4 PLT (test code = 777-3) 282 See_Comment [Automated messa ge] The system which generated this result transmitted reference range: 150 - 328 10*3/?L. The reference range was not used to interpret this result as normal/abnormal. MPV (test code = 88658-0) 9.7 fL 9.8-13.0 L NRBC/100 WBC (test code = 8652505385) 0.0 See_Comment [Automated [employer] ssage] The system which generated this result transmitted reference range: 0.0 - 10.0 /100 WBCs. The reference range was not used to interpret this result as normal/abnormal. NRBC x10^3 (test code = 1478844752) See_Comment [Automated [employer] ge] The system which generated this result transmitted reference range: 10*3/?L. The reference range was not used to interpret this result as normal/abnormal. GRAN MAT (NEUT) % (test code = 770-8) 53.9 % IMM GRAN % (test code = 0982738591) 0.30 % LYMPH % (test code = 736-9) 35.2 % MONO % (test code = 5905-5) 7.4 % EOS % (test code = 713-8) 2.2 % BASO % (test code = 706-2) 1.0 % GRAN MAT x10^3(ANC) (test code = 5014737807) 3.11 10*3/uL 1.99-6.95 IMM GRAN x10^3 (test code = 1667523658) 0.00-0.06 LYMPH x10^3 (test code = 731-0) 2.04 10*3/uL 1.09-3.23 MONO x10^3 (test code = 742-7) 0.43 10*3/uL 0.36-1.02 EOS x10^3 (test code = 711-2) 0.13 10*3/uL 0.06-0.53 BASO x10^3 (test code = 704-7) 0.06 10*3/uL 0.01-0.09 Lab Interpretation (test code = 15072-6) Abnormal [facility] MOLECULAR GFWIK6791-86-59 01:08:10* Test Item Value Reference Range Interpretation Comme nts POCT Molecular Strep (test c ode = 65034-2) Negative Negative Lab Interpretation (test cod e = 80503-5) Normal [facility] MOLECULAR DNPPK9500-44-56 01:08:10* Test Item Value Reference Range Interpretation Comme nts POCT Molecular Strep (test c ode = 93713-5) Negative Negative Lab Interpretation (test cod e = 78892-6) Normal [facility] Progress Notes Date/Time Note Provider Source 2023-05-01 11:00:00 AYmfktNRSENU89pTjjzH EGw+iTdQap Nn7EwsFt8pIjlVGt2fSkQ5ok9418Ry n79S3335-81-11N93:00:00Formatt ing of this note might be different from the original.Elevated liver enzymesDo you have known liver disease or history of Gilbert's disease?If not I would recommend repeat Hepatic Panel and Ultrasound of your liver prior to your follow up with Dr. Puckett in natural lipid profile shows elevation, the kind of cholesterol that increases risk of atherosclerotic plaques or "hardening of the arteries." You can help yourself by observing a low saturated fat and no trans-fat diet. This means choosing the lowest fat gram content you can on your grocery labeling. Choose lower fat dairy choices in particular and minimize use of butter and oils. Pork and beef have higher fat content. If you do select these, trim the fat and choose the leanest cuts. Steer more toward "feathers and fins, " meaning poultry and fish. Shell fish are intermediate fat choices Prepare your foods with little oil---avoid frying. Instead choose to grill, broil, boil, and bake. You can lower triglycerides by taking over the counter fish oil. You can take up to 1 g three times a day. 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 76292-9Stxcbmopw encounter CmihUP3869-19-83B03:07:47Teleph one encounter NoteTXT1.2.840.800958.1.13.104. 2.7.2.576641|[id number] ble for patient ifnf76374-1PnzuTU852618828Iqncl a M Macias [address]TX[address] 85244NXSSRJWZQBOYLIVCEKGQOY4337 -07-31T09:07:471.2.840.764011.1 .72.3.15|1.2.840.361271.1.13.10 4.2.7.2.727879_[id number] Astrid Macias [facility] 2023-06-23 08:24:31 hPNsbR57DH5GFi2riLwB wh2/sSJBnHk L96YvdKb+VX1y5TQiSIjM4poMPOx3h4 +K6720-02-76O56:24:31 I have placed ordersPlease set up labs and Ultrasound 68074-1Ovkncbwga encounter UntoEM4741-79-40B26:24:44Teleph one encounter NoteTXT1.2.840.277661.1.13.104. 2.7.2.124646|[id number] ble for patient zxke69948-3XmreLPCKHEQHXR[address]TX[address] 89414PQKCEWTMQHCRCMTDGMHENI3508 -07-31T08:24:441.2.840.998552.1 .72.3.15|1.2.840.738456.1.13.10 4.2.7.2.727879_[id number] [facility] 2023-06-21 10:32:17 wBCHwO+yjQ3cmoYCwFum oSXzpdUyZuL cu1cEkfJOw/oQ8Bsl0L/IzZcskRBp1H E11345-13-11O61:32:17 Patient notified of results and diet recommendations. States that he does not have history of liver disease or [place] disease. Informed patient lab and imaging orders would be put in to have done prior to next appt with Dr. Puckett 08/07/2023. Patient verbalized understanding.Kayley Felix RN 06/21/2023 10:33 AM 03348-4Cdojuwrtb encounter DnyrTZ7136-64-23S73:34:08Teleph one encounter NoteTXT1.2.840.948994.1.13.104. 2.7.2.897262|[id number] ble for patient qcep30022-7UmdsST480145346Nxxun on [address] 37672VNIEQMYGZERZINMZREVXYQ2136 -07-29T10:34:081.2.840.841088.1 .72.3.15|1.2.840.947811.1.13.10 4.2.7.2.727879_[id number] Kayley Felix [facility] 2023-06-18 16:53:09 xZ20wil2uS+tpSddX9q6 rRrSrk9eTFt TzolKk+CtsYb72tOYphPzG0srLqMx5b pr6882-72-83X46:53:09 Pt is returning nurse call. 25786-2Pnyclzyzb encounter HrmxIZ3551-48-92W02:53:27Teleph one encounter NoteTXT1.2.840.778584.1.13.104. 2.7.2.985844|[id number] ble for patient bwvv05925-7WdvwDV111341189Yhmrj [address] 78718AWDCCROZQDCMYLQUXAEBYF1541 -07-26T16:53:271.2.840.993857.1 .72.3.15|1.2.840.699521.1.13.10 4.2.7.2.727879_[id number] [facility] 2023-05-01 11:00:00 sQO/8kcnu4z/6cGP76FR VNywTiMEzUi kmNMDFWo/dHFkQw7Hqj0bIwZXxri8bn +x6700-10-31O99:00:00 Images from the original note were not included.Venipuncture collection performed by clean technique on the left anticubitus. Total of 1 attempts were made. Slight pressure and a bandage/dressing were applied to the site(s). The patient experienced no complications. The following specimens were processed according to instructions and sent to [facility] laboratories per lab order on today: LT BLUE SST 2 RED LAV 2 PPT DK GREEN (LiHep) DK GREEN (SodH) [place]O DK BLUE (K2) DK BLUE (S) ACD Blood Culture NIPT/NTD 10738-2Fnitv TbrgUW0415-63-11S17:20:26Nurse NoteTXT1.2.840.672934.1.13.104. 2.7.2.100391|[id number] ble for patient [address] ZkhhIxwpbfxwwWinwyzbpjOENA21041 53083LGRCLQXPKSOFWXTAAKDOKF8443 -06-08T11:20:261.2.840.532858.1 .72.3.15|1.2.840.162905.1.13.10 4.2.7.2.727879_[id number] [facility]
--- NOTE | 2024-02-14 13:54 | RAD REPORT ---
EXAM DESCRIPTION: RAD - Chest Single View - 02/14/2024 1:44 pm CLINICAL HISTORY: COUGH COMPARISON: Chest Single View dated 08/25/2022; Chest Single View dated 07/28/2020; Chest Single View d ated 07/24/2020; Chest Single View dated 03/08/2017 FINDINGS: Lines: None. Lungs: No evidence of edema or pneumonia. Pleural: No significant pleural effusions or pneumothorax. Cardiac: The heart size is within normal limits. Mediastinum: Within normal limits. Bones: No acute fractures. Other: None IMPRESSION: No acute cardiopulmonary disease.
--- NOTE | 2024-02-14 14:21 | RAD REPORT ---
EXAM DESCRIPTION: CT - Head Brain Wo Cont - 02/14/2024 2:11 pm CLINICAL HISTORY: HEADACHE COMPARISON: No comparisons TECHNIQUE: All CT scans are performed using dose optimization technique as appropriate and may inclu de automated exposure control or mA/KV adjustment according to patient size. FINDINGS: No acute intracranial hemorrhage. No midline shift. No acute large vascular territory infa rct. Asymmetric enlargement of the cisterna magna, right greater than left. The right cerebellar cayden sphere appears compressed. No midline shift. The left cerebellar hemisphere this also seem to have so me mild mass effect. Low-lying cerebellar tonsils. Trace right maxillary sinus thickening. The calvarium is intact. IMPRESSION: CSF attenuation posterior fossa fluid collection at the cisterna magna could represent a n arachnoid cyst and/or kd cisterna magna. The right cerebellar hemisphere in particular does appea r to have some mass effect. It is possible this could be the source of headache. No prior imaging is available for comparison. No acute intracranial hemorrhage. Suggest neurosurgical consultation.
[2024-02-14 14:46] LABS: Absolute Basophils 0.1 K/uL (0-0.5); Absolute Eosinophils 0.1 K/uL (0-0.5); Absolute Monocytes 0.8 K/uL (0.1-1.3); Absolute Neutrophil 5.9 K/uL (1.8-8.0); Basophils % 0.9 % (0-1.3); Eosinophils % 1.1 % (0-4.4); Hemoglobin 15.9 g/dL (13.6-17.9); Lymphocytes % 13.1 % (15.3-44.8); MCH 28.5 pg (27.0-35.0); MPV 7.6 fL (7.6-11.3); Monocytes % 9.7 % (3.3-12.3); Neutrophils % 75.2 % (41.7-73.7); Platelets 223 thou/uL (152-406); RBC Red Blood Cell Count 5.59 M/uL (4.33-5.43); Red Cell Distribution Width 13.7 % (12.1-15.2)
[2024-02-14 15:06] LABS: Albumin 3.8 g/dL (3.4-5.0); Albumin/Globulin Ratio 1.1 (1.1-1.8); Anion Gap 8.9 mEq/L (5.0-15.0); Bilirubin Total 1.4 mg/dL (0.2-1.0); Globulin 3.5 g/dL (2.3-3.5); Potassium 3.9 mEq/L (3.5-5.1); Protein, Total 7.3 g/dL (6.4-8.2); Troponin High Sensitivity 6.5 pg/mL (<58.9)
--- NOTE | 2024-02-14 15:49 | EDPHYS ---
Physician Documentation [facility] Name: Willy Feliz Jr Age: 28 yrs Sex: Male : 1995 Arrival Date: 02/14/2024 Time: 13:11 Bed 18 Private MD: SHERRON Physician Eladio Camacho HPI: 02/13 15:37 This 28 yrs old Male presents to ER via Ambulatory with complaints of anil Headache, Nausea, High Blood Pressure. 15:37 The patient complains of pain to the left side of the back of head, left occipital anil area, right side of the back of head, right occipital area and right base of the skull. The patient describes the headache as constant. Onset: The symptoms/episode began/occurred 3 day(s) ago. Associated signs and symptoms: The patient has no apparent associated signs or symptoms. Severity of symptoms: At its worst the pain was moderate, in the emergency department the pain is unchanged. Headache History: Denies prior headaches. The symptoms are alleviated by nothing. remaining still, the symptoms are aggravated by nothing. The patient has not experienced similar symptoms in the past. Historical: - Allergies: 13:20 Dilaudid (rash); ko1 - Home Meds: 13:20 propranolol 10 mg oral tablet 1 tab 2 times per day for hypertension [Active]; ko1 - PMHx: 13:20 Anxiety; Asthma; Hypertensive disorder; ko1 - PSHx: 13:20 Appendectomy; ko1 - Immunization history:: Adult Immunizations up to date. - Social history:: Smoking status: Patient denies any tobacco usage or history of. - Family history:: not pertinent. ROS: 15:37 Constitutional: Negative for fever, chills, and weight loss, Eyes: Negative for injury, anil pain, redness, and discharge, ENT: Negative for injury, pain, and discharge, Neck: Negative for injury, pain, and swelling, Cardiovascular: Negative for chest pain, palpitations, and edema, Respiratory: Negative for shortness of breath, cough, wheezing, and pleuritic chest pain, Abdomen/GI: Negative for abdominal pain, nausea, vomiting, diarrhea, and constipation, Back: Negative for injury and pain, : Negative for injury, bleeding, discharge, and swelling, MS/Extremity: Negative for injury and deformity, Skin: Negative for injury, rash, and discoloration, Neuro: Negative for headache, weakness, numbness, tingling, and seizure, Psych: Negative for depression, anxiety, suicide ideation, homicidal ideation, and hallucinations, Allergy/Immunology: Negative for hives, rash, and allergies, Endocrine: Negative for neck swelling, polydipsia, polyuria, polyphagia, and marked weight changes, 15:37 Neuro: Positive for Negative for dizziness, headache, Exam: 15:37 Constitutional: This is a well developed, well nourished patient who is awake, alert, anil and in no acute distress. Head/Face: Normocephalic, atraumatic. Eyes: Pupils equal round and reactive to light, extra-ocular motions intact. Lids and lashes normal. Conjunctiva and sclera are non-icteric and not injected. Cornea within normal limits. Periorbital areas with no swelling, redness, or edema. ENT: Nares patent. No nasal discharge, no septal abnormalities noted. Tympanic membranes are normal and external auditory canals are clear. Oropharynx with no redness, swelling, or masses, exudates, or evidence of obstruction, uvula midline. Mucous membranes moist. Neck: Trachea midline, no thyromegaly or masses palpated, and no cervical lymphadenopathy. Supple, full range of motion without nuchal rigidity, or vertebral point tenderness. No Meningismus. Chest/axilla: Normal chest wall appearance and motion. Nontender with no deformity. No lesions are appreciated. Cardiovascular: Regular rate and rhythm with a normal S1 and S2. No gallops, murmurs, or rubs. Normal PMI, no JVD. No pulse deficits. Respiratory: Lungs have equal breath sounds bilaterally, clear to auscultation and percussion. No rales, rhonchi or wheezes noted. No increased work of breathing, no retractions or nasal flaring. Abdomen/GI: Soft, non-tender, with normal bowel sounds. No distension or tympany. No guarding or rebound. No evidence of tenderness throughout. Back: No spinal tenderness. No costovertebral tenderness. Full range of motion. Male : Normal genitalia with no discharge or lesions. Skin: Warm, dry with normal turgor. Normal color with no rashes, no lesions, and no evidence of cellulitis. MS/ Extremity: Pulses equal, no cyanosis. Neurovascular intact. Full, normal range of motion. Neuro: Awake and alert, GCS 15, oriented to person, place, time, and situation. Cranial nerves II-XII grossly intact. Motor strength 5/5 in all extremities. Sensory grossly intact. Cerebellar exam normal. Normal gait. Psych: Awake, alert, with orientation to person, place and time. Behavior, mood, and affect are within normal limits. 15:37 ECG was reviewed by the Attending Physician. Vital Signs: 13:15 BP 144 / 108; Pulse 87; Resp 15; Temp 97.6; Pulse Ox 99% on R/A; ko1 17:23 BP 192 / 117; Pulse 86; Resp 12; Temp 98.4(O); Pulse Ox 99% ; Pain 8/10; tl4 17:23 Pain Scale: Adult tl4 NIH Stroke Scale Scores: 15:55 NIHSS Score: 0 anil [place] Coma Score: 15:43 Eye Response: spontaneous(4). Motor Response: obeys commands(6). Verbal Response: anil oriented(5). Total: 15. MDM: 13:17 Patient medically screened. anil 15:43 Differential diagnosis: cluster headache, cerebral vascular accident, epidural anil hematoma, hypoglycemia, hyponatremia, intracerebral hemorrhage, meningitis, migraine, neoplasm, temporal arteritis, tension headache, traumatic injuries, trigeminal neuralgia, vasomotor headache. Data reviewed: vital signs, nurses notes, lab test result(s), EKG, radiologic studies, CT scan, plain films. Consideration of Admission/Observation Escalation of care including admission/observation considered. I considered the following discharge prescriptions or medication management in the emergency department Medications were administered in the Emergency Department. See MAR. Independent interpretation of the following test(s) in the Emergency Department EKG: See my EKG interpretation above. Test considered but Not performed: MRI: no mri brain available. Care significantly affected by the following chronic conditions: Hypertension, Obesity. Counseling: I had a detailed discussion with the patient and/or guardian regarding the historical points, exam findings, and any diagnostic results supporting the discharge/admit diagnosis, the presence of at least one elevated blood pressure reading (>120/80) during this emergency department visit, lab results, radiology results, the need to transfer to another facility, for higher level of care, [facility] does not immediately have the required specialist. 02/13 13:18 Order name: CBC with Diff; Complete Time: 15:25 [facility] 02/13 13:18 Order name: Comprehensive Metabolic Panel; Complete Time: 15:25 [facility] 02/13 13:18 Order name: Troponin HS; Complete Time: 15:25 [facility] 02/13 13:18 Order name: Chest Single View XRAY; Complete Time: 14:09 [facility] 02/13 13:18 Order name: CT Head Brain wo Cont; Complete Time: 14:51 [facility] 02/13 13:18 Order name: EKG; Complete Time: 13:18 [facility] 02/13 13:18 Order name: EKG - Nurse/Tech; Complete Time: 14:57 [facility] 02/13 15:56 Order name: Seizure Precautions; Complete Time: 16:28 [facility] EC:37 Rate is 74 beats/min. Rhythm is regular. QRS [place] is Normal. ME interval is normal. QRS anil interval is normal. QT interval is normal. No Q waves. T waves are Normal. No ST changes noted. Clinical impression: Normal ECG and No evidence of ischemia. Interpreted by me. Reviewed by me. Administered Medications: 14:57 Drug: NS 0.9% IV 500 ml IV at bolus once Route: IV; Rate: bolus; Site: right hb antecubital; 17:19 Follow up: Response: No adverse reaction; IV Status: Completed infusion; IV Intake: tl4 500ml 14:57 Drug: Ondansetron IVP 4 mg IVP once; over 2 minutes Route: IVP; Site: right antecubital;hb 14:57 Drug: Norvasc PO 10 mg PO once Route: PO; hb 17:19 Follow up: Response: No adverse reaction tl4 14:57 Drug: Lisinopril PO 10 mg PO once Route: PO; hb 17:19 Follow up: Response: No adverse reaction tl4 16:46 Drug: Aspirin PO Chewable Tablet 81 mg PO once Route: PO; tl4 17:16 Follow up: Response: No adverse reaction tl4 Disposition Summary: 02/14/24 15:49 Transfer Ordered Notes: Transfer Location: [facility] anil Reason: Higher level of care anil Condition: Fair anil Problem: new anil Symptoms: are unchanged anil Accepting Physician: to [facility] , neuro ,tele(02/14/24 17:33) tl4 Diagnosis - Headache anil - Abnormal findings on diagnostic imaging of other specified body structures - CSF anil ATTENUATIONPOSTERIOR FOSSA, WITH MASS EFFECT RIGHT CEREBELLAR HEMISPHERE - Nausea anil - Essential (primary) hypertension anil Forms: - Medication Reconciliation Form anil - SBAR form anil NIH Stroke Scale - NIH Stroke Score Date: 02/14/2024 Time: 15:55 Total Score = 0 10. Dysarthria (speech clarity - read or repeat words) - 0(Normal) 11. Extinction and Inattention (visual/tactile/auditory/spatial/personal) - 0(No abnormality) 1a. Level of Consciousness (LOC) - 0(Alert) 1b. Level of Consciousness (LOC) (Month \T\ Age) - 0(Both) 1c. LOC Commands (Open \T\ Closes Eyes/Computer Graphic Designer) - 0(Both) 2. Best Gaze (Lateral Gaze Paresis) - 0(Normal) 3. Visual Field Loss - 0(No visual loss) 4. Facial Palsy - 0(Normal) 5a. Left Arm: Motor (10-second hold) - 0(No drift) 5b. Right Arm: Motor (10-second hold) - 0(No drift) 6a. Left Leg: Motor (5-second hold - always test supine) - 0(No drift) 6b. Right Leg: Motor (5-second hold - always test supine) - 0(No drift) 7. Limb Ataxia (finger/nose \T\ heel/mendoza - test with eyes open) - 0(Absent) 8. Sensory Loss (pinprick arms/legs/face) - 0(Normal) 9. Best Language: Aphasia (description/naming/reading) - 0(No aphasia) Initials: anil Signatures: Dispatcher [employer] EDEladio Gutiérrez MD MD cha Baxter, Heather RN RN Yana Pinto RN RN ko1 Joel Cooper RN RN tl4 Corrections: (The following items were deleted from the chart) 17:33 15:49 to [facility] , neuro ,tele anil tl4
--- NOTE | 2024-02-14 15:49 | ER ---
Nurse's Notes [facility] Name: Willy Feliz Jr Age: 28 yrs Sex: Male : 1995 Arrival Date: 02/14/2024 Time: 13:11 Bed 18 Private MD: Diagnosis: Headache;Abnormal findings on diagnostic imaging of other specified body structures-CSF ATTENUATIONPOSTERIOR FOSSA, WITH MASS EFFECT RIGHT CEREBELLAR HEMISPHERE;Nausea;Essential (primary) hypertension Presentation: 02/13 13:15 Chief complaint: Patient states: bp was 150/105, went to yesterday and was ko1 prescribed bp medication (propanolol 10mg bid) and took medication about an hour before checking bp. Coronavirus screen: At this time, the client does not indicate any symptoms associated with coronavirus-19. Ebola Screen: No symptoms or risks identified at this time. Initial Sepsis Screen: Does the patient meet any 2 criteria? No. Patient's initial sepsis screen is negative. Does the patient have a suspected source of infection? No. Patient's initial sepsis screen is negative. Risk Assessment: Do you want to hurt yourself or someone else? Patient reports no desire to harm self or others. Onset of symptoms was February 14, 2024. 13:15 Method Of Arrival: Ambulatory ko1 13:15 Acuity: BRUCE 3 ko1 Triage Assessment: 13:20 Headache History: Denies prior headaches. General: Appears in no apparent distress. ko1 Behavior is anxious. Pain: Complains of pain in top of head Pain currently is 6 out of 10 on a pain scale. Pain began gradually, Also complains of nausea. Neuro: No deficits noted. Historical: - Allergies: 13:20 Dilaudid (rash); ko1 - Home Meds: 13:20 propranolol 10 mg oral tablet 1 tab 2 times per day for hypertension [Active]; ko1 - PMHx: 13:20 Anxiety; Asthma; Hypertensive disorder; ko1 - PSHx: 13:20 Appendectomy; ko1 - Immunization history:: Adult Immunizations up to date. - Social history:: Smoking status: Patient denies any tobacco usage or history of. - Family history:: not pertinent. Screenin:41 [facility] ED Fall Risk Assessment (Adult) History of falling in the last 3 months, hb including since admission No falls in past 3 months (0 pts) Confusion or Disorientation No (0 pts) Intoxicated or Sedated No (0 pts) Impaired Gait No (0 pts) Mobility Assist Device Used No (0 pt) Altered Elimination No (0 pt) Score/Fall Risk Level 0 - 2 = Low Risk Oriented to surroundings, Maintained a safe environment, Educated pt \T\ family on fall prevention, incl call for assistance when getting out of bed. Abuse screen: Denies threats or abuse. Denies injuries from another. Nutritional screening: No deficits noted. Tuberculosis screening: No symptoms or risk factors identified. Assessment: 14:00 General: Appears uncomfortable, Behavior is calm, cooperative. Pain: Complains of pain tl4 in right base of the skull and right occipital area and right side of the back of head and left occipital area and left side of the back of head and top of head. Neuro: Level of Consciousness is awake, alert, obeys commands, Oriented to person, place, time, situation, Shrimp Peeling Machine Operator are equal bilaterally Moves all extremities. Gait is steady, Speech is normal, Facial symmetry appears normal, Pupils are PERRLA, Reports headache occipital area, since x 3 days. Cardiovascular: Denies chest pain, palpitations, syncope, Capillary refill < 3 seconds Patient's skin is warm and dry. Respiratory: Airway is patent Trachea midline Respiratory effort is even, unlabored, Respiratory pattern is regular, symmetrical, Breath sounds are clear bilaterally. Denies cough, shortness of breath labored breathing. GI: No deficits noted. No signs and/or symptoms were reported involving the gastrointestinal system. Abd is soft and non tender. : No deficits noted. No signs and/or symptoms were reported regarding the genitourinary system. EENT: No deficits noted. No signs and/or symptoms were reported regarding the EENT system. Denies blurred vision nasal congestion, difficulty swallowing. Derm: No deficits noted. No signs and/or symptoms reported regarding the dermatologic system. Musculoskeletal: No deficits noted. No signs and/or symptoms reported regarding the musculoskeletal system. 15:19 Reassessment: No changes from previously documented assessment. Patient and/or family tl4 updated on plan of care and expected duration. Pain level reassessed. Patient is alert, oriented x 3, equal unlabored respirations, skin warm/dry/pink. 16:09 Reassessment: No changes from previously documented assessment. Patient and/or family tl4 updated on plan of care and expected duration. Pain level reassessed. Patient is alert, oriented x 3, equal unlabored respirations, skin warm/dry/pink. 17:12 Reassessment: No changes from previously documented assessment. Patient and/or family tl4 updated on plan of care and expected duration. Pain level reassessed. Patient is alert, oriented x 3, equal unlabored respirations, skin warm/dry/pink. 17:30 Reassessment: Report to MINO Najera. tl4 Vital Signs: 13:15 BP 144 / 108; Pulse 87; Resp 15; Temp 97.6; Pulse Ox 99% on R/A; ko1 17:23 BP 192 / 117; Pulse 86; Resp 12; Temp 98.4(O); Pulse Ox 99% ; Pain 8/10; tl4 17:23 Pain Scale: Adult tl4 [place] Score: 15:43 Eye Response: spontaneous(4). Motor Response: obeys commands(6). Verbal Response: anil oriented(5). Total: 15. NIH Stroke Scale Scores: 15:55 NIHSS Score: 0 anil ED Course: 13:13 Patient arrived in ED. mr 13:17 Eladio Camacho MD is Attending Physician. anil 13:20 Triage completed. ko1 13:20 Arm band placed on left wrist. Patient placed in an exam room, on a stretcher, on ko1 brinell tester, on pulse oximetry, Patient notified of wait time. 13:46 Chest Single View XRAY In Process Unspecified. EDMS 14:[address] via wheelchair. hb 14:13 CT Head Brain wo Cont In Process Unspecified. EDMS 14:37 Joel Cooper RN is Primary Nurse. tl4 14:38 Inserted saline lock: 20 gauge in right antecubital area, using aseptic technique. hb Blood collected. 14:38 Initial lab(s) drawn, by me, sent to lab. EKG done, by ED staff, reviewed by Eladio Camacho MD. 14:40 Provided Education on: tests, result times. Client placed on continuous cardiac and hb pulse oximetry monitoring. NIBP monitoring applied. cytotechnologist/cytology supervisor on. Pulse ox on. NIBP on. 14:40 Troponin HS Sent. hb 14:40 Comprehensive Metabolic Panel Sent. hb 14:40 CBC with Diff Sent. hb 15:[address] Camacho with Primitivo Madrigal from the [facility].eb 15:[address] Freeman the neurosurgeon impersonator character for [facility] with Dr. Camacho for patient transfer consultation. 16:[address] Hilliard the hospitalist impersonator character for [facility] with Dr. Camacho for patient transfer consultation. 16:02 administrative approval given by Primitivo Madrigal / patient has been accepted to [facility] room 2247/ Dr. Kyrie Hilliard has accepted the patient in transfer/ report to be called to [phone]. 17:32 Patient has correct armband on for positive identification. Placed in gown. Bed in low tl4 position. Call light in reach. Side rails up X 1. Door closed. Noise minimized. Lights dimmed. Moved to private room. Warm blanket given. 17:32 No provider procedures requiring assistance completed. Patient transferred, IV remains tl4 in place. Administered Medications: 14:57 Drug: NS 0.9% IV 500 ml IV at bolus once Route: IV; Rate: bolus; Site: right hb antecubital; 17:19 Follow up: Response: No adverse reaction; IV Status: Completed infusion; IV Intake: tl4 500ml 14:57 Drug: Ondansetron IVP 4 mg IVP once; over 2 minutes Route: IVP; Site: right antecubital;hb 14:57 Drug: Norvasc PO 10 mg PO once Route: PO; hb 17:19 Follow up: Response: No adverse reaction tl4 14:57 Drug: Lisinopril PO 10 mg PO once Route: PO; hb 17:19 Follow up: Response: No adverse reaction tl4 16:46 Drug: Aspirin PO Chewable Tablet 81 mg PO once Route: PO; tl4 17:16 Follow up: Response: No adverse reaction tl4 Medication: 17:33 VIS not applicable for this client. tl4 Intake: 17:19 IV: 500ml; Total: 500ml. tl4 Outcome: 15:49 ER care complete, transfer ordered by MD. ma 17:32 Transferred by ground EMS to [facility], Transfer form completed. tl4 17:32 Condition: stable 17:32 Instructed on the need for transfer, 17:33 Patient left the ED. tl4 NIH Stroke Scale - NIH Stroke Score Date: 02/14/2024 Time: 15:55 Total Score = 0 10. Dysarthria (speech clarity - read or repeat words) - 0(Normal) 11. Extinction and Inattention (visual/tactile/auditory/spatial/personal) - 0(No abnormality) 1a. Level of Consciousness (LOC) - 0(Alert) 1b. Level of Consciousness (LOC) (Month \T\ Age) - 0(Both) 1c. LOC Commands (Open \T\ Closes Eyes/Clinical Nurse Reviewer) - 0(Both) 2. Best Gaze (Lateral Gaze Paresis) - 0(Normal) 3. Visual Field Loss - 0(No visual loss) 4. Facial Palsy - 0(Normal) 5a. Left Arm: Motor (10-second hold) - 0(No drift) 5b. Right Arm: Motor (10-second hold) - 0(No drift) 6a. Left Leg: Motor (5-second hold - always test supine) - 0(No drift) 6b. Right Leg: Motor (5-second hold - always test supine) - 0(No drift) 7. Limb Ataxia (finger/nose \T\ heel/mendoza - test with eyes open) - 0(Absent) 8. Sensory Loss (pinprick arms/legs/face) - 0(Normal) 9. Best Language: Aphasia (description/naming/reading) - 0(No aphasia) Initials: anil Signatures: Dispatcher [employer] EDMS Eladio Camacho MD MD cha Rivera, Lyn, Reg Reg mr Essie Gay, Julia Roche RN, Kathy, RN RN ko1 Joel Cooper RN RN tl4 Corrections: (The following items were deleted from the chart) 17:32 17:23 BP 192 / 117; Pulse 86bpm; tl4 tl4
[2024-02-14 17:59] VITALS: BP 192/117; TEMP 98.4; O2SAT 99
--- NOTE | 2024-02-16 14:20 | EKG ---
Test Date: 2024-02-14 Test Time: 14:43:47 Cloth Inspector: HB MEASUREMENT RESULTS: Intervals: Rate: 74 [place]: 170 QRSD: 122 QT: 370 QTc: 410 [place]: P: 25 [place]: 170 QRS: 8 T: 41 INTERPRETIVE STATEMENTS: Normal sinus rhythm Right bundle branch block Abnormal ECG Compared to ECG 08/25/2022 23:32:49 No significant changes Electronically Signed On 02-16-24 14:14:59 CDT by Edgar Quigley
== END ==
LOC: ER 13:11
DX: R51.9 Headache, unspecified (principal); R93.89 Abnormal findings on diagnostic imaging of other specified body structures; R11.0 Nausea; I10 Essential (primary) hypertension; Z88.5 Allergy status to narcotic agent
CPT/HCPCS: 96361; 93005; 85025; 36415; 84484; 80053; 70450; 71045; 96374; 99285; J2405; J7040